=== PATIENT | male | born 2000 | race Caucasian/White ===

== ENCOUNTER 2021-03-27 17:12 | Emergency (ER) | payer OTHER, SELFPAY ==
[2021-03-27 17:13] VITALS: BP 120/87; PULSE 67; RESP 16; TEMP 36.3; O2SAT 98; BMI 20.9
--- NOTE | 2021-03-27 17:35 | EDS_ITS ---
HPI History of Present Illness HPI Narrative: Patient presents with injury to his right thumb that occurred today. Patient states he got it caught in a press. Patient states his pain is sharp, aching, and throbbing. Patient admits to some numbness and tingling in his right arm. Patient states nothing makes the pain worse and nothing makes it better. Patient states his last tetanus was up-to-date. Patient is right- hand dominant. Chief Complaint: Upper Extremity Injury Informant: patient Occured/Mechanism Mechanism/Context: Yes crush and Yes direct blow Onset/Context/Timing Onset: Today Context: Sudden Onset Timing: Continuous Quality of Pain: Sharp, Aching and Throbbing Location: Right thumb Worsened by: Palpation Relieved by: Nothing Associated Symptoms Associated Symptoms: Positive for Parasthesia; Negative for Weakness and Loss of Funtion Narrative Tetanus Immunization: <5 years [facility] Medical History History of skull fracture Home Medications NK 03/27/21 [History Last Taken Unknown] Allergy/AdvReac Type Severity Reaction Status Date / Time No Known Allergies Allergy Verified 03/27/21 17:15 Social History Smoking Status: Current every day smoker tobacco type: smokeless tobacco ROS ROS ED Constitutional Constitutional ED: Denies chills or fever(s) Eyes Eyes: Denies blurry vision or change in vision ENT ENT ED: Denies rhinorrhea or sore throat Cardiovascular Cardiovascular: Denies chest pain or palpitations Respiratory/Chest Respiratory/Chest: Denies cough or dyspnea Gastrointestinal Gastrointestinal: Denies nausea or vomiting Genitourinary Genitourinary ED: Denies dysuria or hematuria Musculoskeletal Musculoskeletal: Denies back pain or neck pain Integumentary Denies abscess or rash Neurologic Neurologic: Denies headache(s) or weakness Allergic/Immunologic Allergic/Immunologic ED: Denies mouth swelling or urticaria EXAM Physical Exam Const Vital Signs: 03/27/21 17:13 Temperature 97.4 F L Temperature Source Temporal Pulse Rate 67 Respiratory Rate 16 Blood Pressure 120/87 H Blood Pressure Mean 98 Pulse Ox 98 Oxygen Delivery Method Room Air Positive well nourished and well developed General Appearance ED: well developed and NAD HEENT Reports moist mucous membranes Neck full ROM and supple Extremity Extremity Narrative: There is a crush injury to the right thumb. There is a large stellate laceration of the right thumb. There is bone exposed. There is loss of tissue. There is no active bleeding noted. Neuro oriented x3, CN's II-XII intact bilaterally, moves all extremities, no focal motor deficits and no sensory deficits noted Sensorium / Orientation: alert Psych mental status grossly normal MDM MDM MDM Narrative Medical decision making narrative: Patient was given Dilaudid and Zofran here. Patient was given Ancef. Patient states his tetanus was up-to-date. X-rays of the right hand were obtained. There are 3 views. On my interpretation, there are comminuted fractures of the base of the distal phalanx of the right thumb and distal aspect of the proximal phalanx of the right thumb. Since this is the thumb on his dominant hand, I recommended transfer to a facility that has hand surgery capabilities. Case was discussed with Dr. Hogan in the emergency department at [facility]. She recommended contacting Dr. Les vivas. I discussed the case with her. She agrees to have the patient transferred to [facility]. Patient will be transferred to the emergency department there and seen by the orthopedic and hand residents. Patient understood and was agreeable with the plan. All questions were answered. Discharge Plan Triage Chief Complaint: Upper Extremity Injury ED Provider: Mahad Nolasco Dx/Rx/DC Orders Clinical Impression: Open fracture of right thumb Prescriptions: No Action NK RF: 0 Primary Care Provider: Natalie Garza Referrals: Natalie Garza DO [Primary Care Provider] - Disposition Disposition: Acute Care Hospital Discharge Location: [facility]
[2021-03-27] MEDS: HYDROmorphone 1 MG/ML Syringe IV ×2 (17:42→20:02)
[2021-03-27] MEDS: Ondansetron 4 MG/2 ML Vial IV (17:42)
--- NOTE | 2021-03-27 18:00 | RAD_ITS ---
STUDY: X-RAY - RIGHT HAND REASON FOR EXAM: Male, 20 years old. PARTIAL AMPUTATION OF RIGHT THUMB AFTER GETTING STUCK IN A PRESS AT WORK TECHNIQUE: 3 view(s) of the hand. COMPARISON: None. FINDINGS: A horizontal fracture is present through the head of the proximal talus of the thumb which is displaced laterally from a site of origin by 7.4 mm. A comminuted fracture is also present at the base of the distal phalanx of the thumb with high-grade laceration of the overlying soft tissues and partial amputation the remaining aspects of the distal phalanx of the thumb are intact. Normal radiocarpal articulation. Normal distal radioulnar joint. Normal visualized carpal bones. Normal carpal articulations Normal carpometacarpal articulation of the thumb. Normal second through fifth carpometacarpal joints. Normal metacarpi. Normal metacarpophalangeal joint of the thumb. Normal interphalangeal joint of the thumb. Normal proximal and distal phalanges of the thumb. Normal metacarpophalangeal joints of the second through fifth fingers. Normal proximal and distal interphalangeal joints of the second through fifth fingers. RAD/Hand Min 3 Views IMPRESSION: 1. A horizontal fracture is present through the head of the proximal talus of the thumb which is displaced laterally from a site of origin by 7.4 mm. A comminuted fracture is also present at the base of the distal phalanx of the thumb with high-grade laceration of the overlying soft tissues and partial amputation the remaining aspects of the distal phalanx of the thumb are intact Electronically Signed: David Caldeorn MD at 19:00 EST ,
[2021-03-27 18:12] VITALS: BP 128/93; PULSE 52; RESP 14; O2SAT 100
[2021-03-27] MEDS: Cefazolin 1 GM/50 ML BAG IV (18:16)
[2021-03-27 19:12] VITALS: BP 122/79; RESP 16; O2SAT 99
--- NOTE | 2021-03-27 19:59 | ED.RN ---
CALLED [facility] TO GET A TRAUMA TRANSFER, THE ETA WAS TWO HOURS. I TOLD THEM TO OUTSOURCE THIS DUE TO BEING A TRAUMA TRANSFER AND THAT TWO HOURS WAS NOT ACCEPTABLE. THEY SAID THEY HAVE BEEN TRYING TO GET [facility] FOR TRANSFERS AND NOBODY ELSE WILL TAKE OUR TRANSFERS.
[2021-03-27 20:00] VITALS: BP 122/79; PULSE 56; RESP 16; O2SAT 100
[2021-03-27 20:41] VITALS: BP 119/73; PULSE 56; RESP 16; TEMP 36.3; O2SAT 100
== END 2021-03-27 20:56 | disposition short-term general hospital (02) ==
PROVIDERS: Emergency Provider Emergency Medicine; PCP Family Medicine; Visit Provider Emergency Medicine
DX: S62.521B Displaced fracture of distal phalanx of right thumb, initial encounter for open fracture (principal); F17.220 Nicotine dependence, chewing tobacco, uncomplicated; W31.9XXA Contact with unspecified machinery, initial encounter
CPT/HCPCS: 73130; 99285; J2405

== ENCOUNTER 2021-04-02 17:24 | Emergency (ER) | payer OTHER, SELFPAY ==
[2021-04-02 17:24] VITALS: BP 128/93; PULSE 83; RESP 14; TEMP 36.2; O2SAT 98; BMI 18.1
--- NOTE | 2021-04-02 18:13 | EDS_ITS ---
HPI History of Present Illness Chief Complaint: Wound Check Informant: patient and parent Onset/Context/Timing Onset: Days (2-3) Context: Gradual Onset Timing: Continuous Quality of Pain: Aching Location: Right thumb Current Severity: Moderate Maximum Severity: Moderate Worsened by: Palpation Relieved by: Leaving alone Associated Symptoms Associated Symptoms: Positive for Parasthesia Narrative Narrative: Patient had a right thumb crush injury, he had surgery on it about 6 days ago in [facility] Dr. Dara Love. He had antibiotics while he was at the hospital, with not discharged on any. They were advised not to do anything with the dressing until seen as follow-up in the office which is scheduled for tomorrow. Over the last couple days, there has been seeping of blood, and it has started to become foul-smelling. They called the office and were advised to go ahead and change the dressing, and if they had trouble to go to the nearest ER which is what they did. He denies any fevers, chills, systemic symptoms. His only knowledge of the surgery was they did a partial amputation and repair. [facility] Medical History History of skull fracture Home Medications cefadroxil 500 mg PO Q12H #20 cap 04/02/21 [Rx Last Taken Unknown] Allergy/AdvReac Type Severity Reaction Status Date / Time adhesive tape Allergy Rash Verified 04/02/21 17:28 Social History Smoking Status: Current every day smoker tobacco type: smokeless tobacco ROS ROS ED Constitutional Constitutional ED: Denies chills or fever(s) Musculoskeletal Musculoskeletal: Reports extremity pain; Denies neck pain Integumentary Reports as per HPI and wounds; Denies Abrasions or rash Neurologic Neurologic: Reports paresthesias RUE (Thumb since surgery); Denies weakness EXAM Physical Exam Const Vital Signs: 04/02/21 17:24 Temperature 97.2 F L Temperature Source Temporal Pulse Rate 83 Respiratory Rate 14 Blood Pressure 128/93 H Blood Pressure Mean 104 Pulse Ox 98 Oxygen Delivery Method Room Air Positive well nourished and well developed General Appearance ED: well developed and NAD Neck full ROM and supple Back/Spine normal ROM and normal to inspection Extremity Extremity Narrative: Patient has a bulky dressing on the right thumb along with a fiberglass splint that is custom built within the dressing. After gently removing this layer by layer including many layers of gauze that were dried to the thumb with dried blood, there were the layers of green, it is somewhat foul-smelling, I was able to reveal perfused-appearing tissue with 4 K wires emanating from different parts of the distal aspect of what is left of the thumb, there is some occasional mild oozing of blood no pulsatile or life- threatening bleeding, there is a hardened piece of gauze against the tip of the finger keeping me from visualizing the skin here, which is where there are 2 K wires. It is possible this was soaked in Dakin's solution, however difficult to tell. Neuro oriented x3, no focal motor deficits and no sensory deficits noted Sensorium / Orientation: alert Psych mental status grossly normal and thought process normal Skin no wounds Rashes: no rashes MDM MDM MDM Narrative Medical decision making narrative: I discussed with the hand surgeon on-call for the patient's surgeon at [facility], his recommendation was to redress the patient's wound and place him on prophylactic antibiotics and they will see you tomorrow at the regularly scheduled appointment which I think is reasonable. I think in reality this is probably not acutely infected, and that the foul smell is coming from whatever solution the gauze was soaked and against the wound. There is a small piece of gauze that is black and thickened and difficult to remove, it is against the K wires at the tip of the thumb, and the surgeon recommended leaving that alone so as not to disturb the K wires, also totally in agreement with that. I redressed him myself, with nursing assistance, winding a piece of iodoform-Vaseline gauze in between the K wires, and then placing alcohol pads on top of the K wires so as not to have them hooked onto and catch the gauze dressing, then a bulky gauze dressing was placed on top of that. He is being seen in 12 hours or so, so I do not think he needs splinted on top of this and they are in agreement with all of that. Prescribe Duricef and given a dose here. Discharge Plan Triage Chief Complaint: Wound Check ED Provider: Jameson Killian Dx/Rx/DC Orders Clinical Impression: Encounter for post surgical wound check, Encounter for change or removal of surgical wound dressing Instructions: Wound Care Dc Prescriptions: New cefadroxil 500 mg capsule 500 mg PO Q12H Qty: 20 RF: 0 Primary Care Provider: Natalie Garza Referrals: Dara Castellano [Other] - 1 Day (as scheduled tomorrow) Natalie Garza DO [Primary Care Provider] - Disposition Disposition: Home, Self Care
[2021-04-02 19:27] VITALS: BP 130/70; PULSE 86; RESP 16
[2021-04-02] MEDS: Cefadroxil 500 MG CAPSULE PO (19:47)
== END 2021-04-02 19:48 | disposition home or self-care (01) ==
PROVIDERS: Emergency Provider Emergency Medicine; PCP Family Medicine; Visit Provider Emergency Medicine
DX: Z48.01 Encounter for change or removal of surgical wound dressing (principal); F17.220 Nicotine dependence, chewing tobacco, uncomplicated
CPT/HCPCS: 99282

== ENCOUNTER 2024-12-04 17:53 | Emergency (ER) | payer SELFPAY ==
[2024-12-04 17:54] VITALS: BP 137/82; PULSE 64; RESP 20; TEMP 36.4; O2SAT 99; BMI 19.9
--- NOTE | 2024-12-04 18:20 | RAD_ITS ---
PROCEDURE: RIGHT HAND MIN 3 VIEWS 12/04/2024 REASON FOR EXAM: INJURY/PAIN TECHNIQUE: Procedure Code: LEFTY Modality: DX Procedure: HAND MIN 3 VIEWS Laterality: Right COMPARISON: None. FINDINGS: No acute fracture or dislocation. Alignment is anatomic. Preserved joint spaces. No aggressive osseous lesion. No marked soft tissue swelling or radiopaque foreign body. RAD/Hand Min 3 Views IMPRESSION: No acute fracture or dislocation. Reading Location: [id number]
--- OUTSIDE RECORDS SUMMARY | 2024-12-04 19:08 | XMS RPT_ITS | CCD ---
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 with delayed healing, subsequent encounter [S62.511G] Order(s):XR DIGIT GENERAL 3V FRONTAL/LAT/OBL RIGHT [[id number]] Order #: [id number] Problem List As Of Date (more content not included)... [facility] CNTHERAPYon 08-07-2021 CNTHERAPY OT/PT/Speech Visit (AKOTS) HARVEY ECHEVARRIA ([id number]) 2000 [facility] Date Time Provider Department 08/07/21 11:00 AM PARVIN MCDANIELS Date Time Provider Department Center 08/07/2021 11:00 AM [id number] MCDANIELS [facility] Reason for Visit: Occupational Therapy [504] OT Discharge [750] Primary Visit Diagnosis:Crushing injury of right thumb, subsequent encounter [S67.01XD] Allergies As of Date: 08/07/2021 Noted Allergy Reaction ADHESIVE TAPE (ROSINS) 04/02/2021 2 - Rash CLARITIN (LORATADINE) 04/24/2021 2 - Rash Date Reviewed: 08/07/2021 Reviewed by: Tiesha Damian LPN - Fully Assessed [facility] CNTHERAPYon 07-24-2021 CNTHERAPY OT/PT/Speech Visit (AKOT[facility]) HARVEY ECHEVARRIA ([id number]) 2000 [facility] Date Time Provider Department 07/24/21 10:45 AM MARIA ALEJANDRA QUISPE Date Time Provider Department Center 07/24/2021 10:45 AM [id number] ALEJANDRA QUISPE [facility] Reason for Visit: OT Progress Note [1595] Primary Visit Diagnosis:Crushing injury of right thumb, subsequent encounter [S67.01XD] Allergies As of Date: 07/24/2021 Noted Allergy Reaction ADHESIVE TAPE (ROSINS) 04/02/2021 2 - Rash CLARITIN (LORATADINE) 04/24/2021 2 - Rash Date Reviewed: 07/14/2021 Reviewed by: Dara Hilario MD - Fully Assessed [facility] CNCOon 07-14-2021 CNCO Letter Text [facility] CNOVon 07-14-2021 CNOV Office Visit (AGPOB3 ) HARVEY ECHEVARRIA ([id number]) 2000 [facility] Date Time Provider Department 07/14/21 10:45 AM DARA HILARIO AGPOB3 During your visit today, we recorded the following information about you: Respiration Weight Height 16/minute 56.2 kg 1.778 m Dara Hilario MD 07/14/2021 10:39 AM Signed Dara Hilario MD Hand AND Upper Extremity Surgery [address], [place] [address], [place] [address] [address], [place] [address], [address], [place] [address] POST-OP VISIT SERVICE DATE: 07/14/2021 SURGICAL PROCEDURE: 11 weeks 4 days status post- 1)?Debridement and irrigation of skin, subcutaneous tissue,?bone of the right thumb?for infection 2) Removal of hardware, right thumb distal phalanx 3) Removal of hardware, right thumb proximal phalanx 4) Revision amputation of the right thumb at the interphalangeal joint SURGERY DATE: 04/24/21 Harvey Echevarria is a 20 year old male who presents for evaluation following the above procedure. Patient is doing well postoperatively and advancing through postop protocol. Patient denies any fevers or chills. Patient denies any new drainage from the incision. Improving numbness/tingling and sensitivity to the distal tip. Pain is controlled with [id number] pain medication as needed. Patient is working on range of motion with a home exercise program and occupational therapy. He has started working on [employer]. I am keeping him limited with strengthening thus far due to incomplete fracture healing of the proximal phalanx at the last visit. Work status: Modified duty No past medical history on file. PAST SURGICAL HISTORY Procedure Laterality Date - PAST SURGICAL HISTORY OF right thumb amputaion No family history on file. Social History Tobacco Use - Smoking status: Never Smoker - Smokeless tobacco: Former User Types: Chew Substance Use Topics - Alcohol use: Not on file - Drug use: Not on file MEDICATIONS: No current outpatient medications on file. No current facility-administered medications for this visit. ALLERGIES: ALLERGIES Allergen Reactions - Adhesive Tape (Tiffanie* Rash - Claritin [Loratadin* Rash PHYSICAL EXAM: VITAL SIGNS: There were no vitals taken for this visit. GENERAL: The patient is well developed and well nourished, awake, alert, and oriented with appropriate mood and affect. Normal gait and station. SKIN: The skin surrounding the incision is non-erythematous. No active drainage. No fluctuance or fluid collection. Incision maturing. There is a scabbing area that is being treated by silicone successfully thus far INSPECTION/PALPATION: There is improved swelling around the surgical site, within normal post-op limits, and no palpable joint effusion. TENDERNESS: There is decreased tenderness to palpation over the distal aspect of the proximal phalanx ROM: There is good MP flexion and extension LIGAMENTS: There is no gross ligamentous laxity. MUSCLE: Chalk Extruding Machine Operator strength is decreased due to weakness NEURO: Sensation is grossly intact to light touch in the median, ulnar, and radial distributions. VASCULAR: Strong radial pulse. Excellent capillary refill to all digits. POST OPERATIVE IMAGIN views (PA, oblique, lateral) of the right thumb were obtained, reviewed and interpreted and demonstrate no interval fracture displacement. Increased callus formation at the previously viewed fracture site. Overall alignment of the proximal phalanx is near anatomic. Assessment and Plan: (S67.01XD) Crush injury to thumb, right, subsequent encounter (primary encounter diagnosis) (S68.126D) Open displaced fracture of proximal phalanx of right thumb with routine healing, subsequent encounter I reviewed the X-rays with the patient. At this point I think there is increased callus formation at the fracture site. It is still incompletely healed ulnarly with some sclerosis at the site but seems to be healed enough to begin strengthening. I would like him to start strengthening and pinch with OT in order to regain closer to baseline function and be able to return to work full duty. Plan will be returned to work without restriction after the next visit if therapy is successfully completed and progress is made. Continue scar desensitization. We discussed cold intolerance again. Patient understands the time needed for this to improve. All patient's questions were answered to their satisfaction. Patient/family acknowledges understanding of instructions: Yes Patient advised to call with questions or concerns Follow up in 3 weeks. X-Rays Needed Dara Hilario MD Referring Provider: SELF [200] Allergies As of Date: 07/14/2021 Noted Allergy Reaction ADHESIVE TAPE (ROSINS) 04/02/2021 2 - Rash CLARITIN (LORATADINE) 04/24/2021 2 - Rash Date Reviewed: 07/14/2021 Reviewed by: Darci (more content not included)... [facility] CNTHERAPYon 07-03-2021 CNTHERAPY OT/PT/Speech Visit (AKOTS) HARVEY ECHEVARRIA ([id number]) 2000 [facility] Date Time Provider Department 07/03/21 10:15 AM YOU RAY Date Time Provider Department Center 07/03/2021 10:15 AM [id number] RAY [facility] Reason for Visit: Occupational Therapy [504] Primary Visit Diagnosis:Crushing injury of right thumb, subsequent encounter [S67.01XD] Allergies As of Date: 07/03/2021 Noted Allergy Reaction ADHESIVE TAPE (ROSINS) 04/02/2021 2 - Rash CLARITIN (LORATADINE) 04/24/2021 2 - Rash Date Reviewed: 06/14/2021 Reviewed by: Dara Hilario MD - Fully Assessed [facility] CNTHERAPYon 06-26-2021 CNTHERAPY OT/PT/Speech Visit (AKOT[facility]) HARVEY ECHEVARRIA ([id number]) 2000 [facility] Date Time Provider Department 06/26/21 12:30 PM YOU RAY Date Time Provider Department Center 06/26/2021 12:30 PM [id number] CORTES [facility] Reason for Visit: Occupational Therapy [504] Primary Visit Diagnosis:Crushing injury of right thumb, subsequent encounter [S67.01XD] Allergies As of Date: 06/26/2021 Noted Allergy Reaction ADHESIVE TAPE (ROSINS) 04/02/2021 2 - Rash CLARITIN (LORATADINE) 04/24/2021 2 - Rash Date Reviewed: 06/14/2021 Reviewed by: Dara Hilario MD - Fully Assessed [facility] CNTHERAPYon 06-19-2021 CNTHERAPY OT/PT/Speech Visit ([facility]) HARVEY ECHEVARRIA ([id number]) 2000 [facility] Date Time Provider Department 06/19/21 9:30 AM YOU RAY Date Time Provider Department Center 06/19/2021 9:30 AM [id number] CORTES [facility] Reason for Visit: OT Progress Note [1595] Primary Visit Diagnosis:Crushing injury of right thumb, subsequent encounter [S67.01XD] Allergies As of Date: 06/19/2021 Noted Allergy Reaction ADHESIVE TAPE (ROSINS) 04/02/2021 2 - Rash CLARITIN (LORATADINE) 04/24/2021 2 - Rash Date Reviewed: 06/14/2021 Reviewed by: Dara Hilario MD - Fully Assessed [facility] CNOVon 06-09-2021 CNOV Office Visit (AGPOB3 ) HARVEY ECHEVARRIA ([id number]) 2000 [facility] Date Time Provider Department 06/09/21 10:30 AM DARA HILARIO AGPOB3 During your visit today, we recorded the following information about you: Respiration Weight Height 16/minute 56.2 kg 1.727 m Dara Hilario MD 07/09/2021 7:31 PM Signed Dara Hilario MD Hand AND Upper Extremity Surgery [address] [id number] [address], [facility] [address] [address] [facility] [address] [facility] [address], [facility] [address] [address], [place] [address] POST-OP VISIT SERVICE DATE: 06/09/2021 SURGICAL PROCEDURE: 6 weeks 4 days status post- 1) Debridement and irrigation of skin, subcutaneous tissue, bone of the right thumb for infection 2) Removal of hardware, right thumb distal phalanx 3) Removal of hardware, right thumb proximal phalanx 4) Revision amputation of the right thumb at the interphalangeal joint SURGERY DATE: 04/24/21 Harvey Echevarria is a 20 year old male who presents for evaluation following the above procedure. Patient is doing well postoperatively and advancing through postop protocol. Patient denies any fevers or chills. Patient denies any new drainage from the incision. Has stable distal thumb stump numbness/tingling. Pain is controlled with OTC pain medication as needed. Patient is working on range of motion with a home exercise program and occupational therapy. Work status: Has been back on modified duty Incision has been healing well. No past medical history on file. PAST SURGICAL HISTORY Procedure Laterality Date - PAST SURGICAL HISTORY OF right thumb amputaion No family history on file. Social History Tobacco Use - Smoking status: Never Smoker - Smokeless tobacco: Former User Types: Chew Substance Use Topics - Alcohol use: Not on file - Drug use: Not on file MEDICATIONS: No current outpatient medications on file. No current facility-administered medications for this visit. ALLERGIES: ALLERGIES Allergen Reactions - Adhesive Tape (Tiffanie* Rash - Claritin [Loratadin* Rash PHYSICAL EXAM: VITAL SIGNS: Resp 16 Ht 5' 8 (1.73m) Wt 124 lb (56.2kg) BMI 18.86 kg/(m2). GENERAL: The patient is well developed and well nourished, awake, alert, and oriented with appropriate mood and affect. Normal gait and station. SKIN: The skin surrounding the incision is non-erythematous. No active drainage. No fluctuance or fluid collection. Thumb is healing well INSPECTION/PALPATION: There is diffuse, improving swelling around the surgical site, within normal post-op limits, and no palpable joint effusion. TENDERNESS: There is tenderness to palpation over the distal tip worst ulnarly ROM: There is good MP flexion which is symmetric LIGAMENTS: There is no gross ligamentous laxity. MUSCLE: Chalk Extruding Machine Operator strength is not tested NEURO: Sensation is grossly intact to light touch in the median, ulnar, and radial distributions except at tip of thumb VASCULAR: Strong radial pulse. Excellent capillary refill to all digits. POST OPERATIVE IMAGIN views (PA, oblique, lateral) of the right thumb were obtained, reviewed and interpreted and demonstrate fracture at the distal aspect of the proximal phalanx with some interval callus. Assessment and Plan: (M96.59XD) Crush injury to thumb, right, subsequent encounter (primary encounter diagnosis) (E15.179D) Open displaced fracture of proximal phalanx of right thumb with routine healing, subsequent encounter I reviewed the X-rays with the patient. I think his area of maximal pain correlates with the lingering fracture line. We will continue to monitor for fracture healing. He will continue to work on range of motion with OT. I would like to wait on strengthening until we see more healing at the fracture site. Continue to work on daily wound care. All patient's questions were answered to their satisfaction. Patient/family acknowledges understanding of instructions: Yes Patient advised to call with questions or concerns Follow up in 2 - 4 weeks. X-Rays Needed Dara Hilario MD Referring Provider: [facility] [[id number]] Allergies As of Date: 06/09/2021 Noted Allergy Reaction ADHESIVE TAPE (ROSINS) 04/02/2021 2 - Rash CLARITIN (LORATADINE) 04/24/2021 2 - Rash Date Reviewed: 06/09/2021 Reviewed by: Lata Matt - Fully Assessed Reason for Visit: Follow Up [171] Primary Visit Diagnosis:Crush injury to thumb, right, subsequent encounter [S67.01XD] Other Visit Diagnosis:Open displaced fracture of proximal phalanx of right thumb with routine healing, subsequent encounter [S62.511D] Order(s):XR DIGIT GENERAL 3V FRONTAL/LAT/OBL RIGHT [[id number]] Order #: [id number] Problem List As Of Date 06/09/2021 Noted Resolved Thumb injury [S69.90XA] 03/28/2021 Nicotine use disorder, F17.2 [F17.200] 03/28/2021 Open displaced fracture of (more content not included)... Normal [facility] CNTHERAPYon 06-05-2021 CNTHERAPY OT/PT/Speech Visit (AKOT[facility]) HARVEY ECHEVARRIA ([id number]) 2000 M [facility] Date Time Provider Department 06/05/21 9:30 AM YOU RAY Date Time Provider Department Center 06/05/2021 9:30 AM [id number] RAY [facility] Reason for Visit: Occupational Therapy [504] Primary Visit Diagnosis:Crushing injury of right thumb, subsequent encounter [S67.01XD] Allergies As of Date: 06/05/2021 Noted Allergy Reaction ADHESIVE TAPE (ROSINS) 04/02/2021 2 - Rash CLARITIN (LORATADINE) 04/24/2021 2 - Rash Date Reviewed: 05/18/2021 Reviewed by: Dara Hilario MD - Fully Assessed [facility] CNTHERAPYon 05-26-2021 CNTHERAPY OT/PT/Speech Visit ([facility]) HARVEY ECHEVARRIA ([id number]) 2000 [facility] Date Time Provider Department 05/26/21 11:00 AM YOU RAY Date Time Provider Department Center 05/26/2021 11:00 AM [id number] RAY [facility] Reason for Visit: Occupational Therapy [504] Primary Visit Diagnosis:Crushing injury of right thumb, subsequent encounter [S67.01XD] Allergies As of Date: 05/26/2021 Noted Allergy Reaction ADHESIVE TAPE (ROSINS) 04/02/2021 2 - Rash CLARITIN (LORATADINE) 04/24/2021 2 - Rash Date Reviewed: 05/18/2021 Reviewed by: Dara Hilario MD - Fully Assessed Prescriptions as of 05/26/2021 - sulfamethoxazole-trime thoprim (BACTRIM DS) 800-160 mg per tablet Take 1 tablet by mouth twice daily for 10 days. Normal [facility] Emergency Department Summary on 04-02-2021 Emergency Department Summary [facility] Medical Records Department [address] [place] [address] Emergency Department Summary 04/02/21 MR#: [id number] Acct: [id number] Name: HARVEY ECHEVARRIA Rep #: [id number] : 2000 20 From: Jameson Killian MD PCP: Dr. Natalie Live, DO Status:REG ER Location: ED HPI History of Present Illness Chief Complaint: Wound Check Informant: patient and parent Onset/Context/Timing Onset: Days (2-3) Context: Gradual Onset Timing: Continuous Quality of Pain: Aching Location: Right thumb Current Severity: Moderate Maximum Severity: Moderate Worsened by: Palpation Relieved by: Leaving alone Associated Symptoms Associated Symptoms: Positive for Parasthesia Narrative Narrative: Patient had a right thumb crush injury, he had surgery on it about 6 days ago in [facility] Dr. Dara Love. He had antibiotics while he was at the hospital, with not discharged on any. They were advised not to do anything with the dressing until seen as follow-up in the office which is scheduled for tomorrow. Over the last couple days, there has been seeping of blood, and it has started to become foul-smelling. They called the office and were advised to go ahead and change the dressing, and if they had trouble to go to the nearest ER which is what they did. He denies any fevers, chills, systemic symptoms. His only knowledge of the surgery was they did a partial amputation and repair. [facility] Medical History History of skull fracture Home Medications cefadroxil 500 mg PO Q12H #20 cap 04/02/21 [Rx Last Taken Unknown] Allergy/AdvReac Type Severity Reaction Status Date / Time adhesive tape Allergy Rash Verified 04/02/21 17:28 Social History Smoking Status: Current every day smoker tobacco type: smokeless tobacco ROS ROS ED Constitutional Constitutional ED: Denies chills or fever(s) Musculoskeletal Musculoskeletal: Reports extremity pain; Denies neck pain Integumentary Reports as per HPI and wounds; Denies Abrasions or rash Neurologic Neurologic: Reports paresthesias RUE (Thumb since surgery); Denies weakness EXAM Physical Exam Const Vital Signs: 04/02/21 17:24 Temperature 97.2 F L Temperature Source Temporal Pulse Rate 83 Respiratory Rate 14 Blood Pressure 128/93 H Blood Pressure Mean 104 Pulse Ox 98 Oxygen Delivery Method Room Air Positive well nourished and well developed General Appearance ED: well developed and NAD Neck full ROM and supple Back/Spine normal ROM and normal to inspection Extremity Extremity Narrative: Patient has a bulky dressing on the right thumb along with a fiberglass splint that is custom built within the dressing. After gently removing this layer by layer including many layers of gauze that were dried to the thumb with dried blood, there were the layers of green, it is somewhat foul-smelling, I was able to reveal perfused-appearing tissue with 4 K wires emanating from different parts of the distal aspect of what is left of the thumb, there is some occasional mild oozing of blood no pulsatile or life-threatening bleeding, there is a hardened piece of gauze against the tip of the finger keeping me from visualizing the skin here, which is where there are 2 K wires. It is possible this was soaked in Dakin's solution, however difficult to tell. Neuro oriented x3, no focal motor deficits and no sensory deficits noted Sensorium / Orientation: alert Psych mental status grossly normal and thought process normal Skin no wounds Rashes: no rashes MDM MDM MDM Narrative Medical decision making narrative: I discussed with the hand surgeon on-call for the patient's surgeon at [facility], his recommendation was to redress the patient's wound and place him on prophylactic antibiotics and they will see you tomorrow at the regularly scheduled appointment which I think is reasonable. I think in reality this is probably not acutely infected, and that the foul smell is coming from whatever solution the gauze was soaked and against the wound. There is a small piece of gauze that is black and thickened and difficult to remove, it is against the K wires at the tip of the thumb, and the surgeon recommended leaving that alone so as not to disturb the K wires, also totally in agreement with that. I redressed him myself, with nursing assistance, winding a piece of iodoform-Vaseline gauze in between the K wires, and then placing alcohol pads on top of the K wires so as not to have them hooked onto and catch the gauze dressing, then a bulky gauze dressing was placed on top of that. He is being seen in 12 hours or so, so I do not think he needs splinted on top of this and they are in agreement with all of (more content not included)... Normal [facility] Emergency Department Summary on 03-27-2021 Emergency Department Summary [facility] Medical Records Department [address] [place] [address] Emergency Department Summary 03/27/21 MR#: [id number] Acct: [id number] Name: HARVEY ECHEVARRIA Rep #: [id number] : 2000 20 From: Mahad Nolasco DO PCP: Dr. Natalie Live DO Status:DEP ER Location: ED HPI History of Present Illness HPI Narrative: Patient presents with injury to his right thumb that occurred today. Patient states he got it caught in a press. Patient states his pain is sharp, aching, and throbbing. Patient admits to some numbness and tingling in his right arm. Patient states nothing makes the pain worse and nothing makes it better. Patient states his last tetanus was up-to-date. Patient is right-hand dominant. Chief Complaint: Upper Extremity Injury Informant: patient Occured/Mechanism Mechanism/Context: Yes crush and Yes direct blow Onset/Context/Timing Onset: Today Context: Sudden Onset Timing: Continuous Quality of Pain: Sharp, Aching and Throbbing Location: Right thumb Worsened by: Palpation Relieved by: Nothing Associated Symptoms Associated Symptoms: Positive for Parasthesia; Negative for Weakness and Loss of Funtion Narrative Tetanus Immunization: <5 years PFSH [facility] Medical History History of skull fracture Home Medications NK 03/27/21 [History Last Taken Unknown] Allergy/AdvReac Type Severity Reaction Status Date / Time No Known Allergies Allergy Verified 03/27/21 17:15 Social History Smoking Status: Current every day smoker tobacco type: smokeless tobacco ROS ROS ED Constitutional Constitutional ED: Denies chills or fever(s) Eyes Eyes: Denies blurry vision or change in vision ENT ENT ED: Denies rhinorrhea or sore throat Cardiovascular Cardiovascular: Denies chest pain or palpitations Respiratory/Chest Respiratory/Chest: Denies cough or dyspnea Gastrointestinal Gastrointestinal: Denies nausea or vomiting Genitourinary Genitourinary ED: Denies dysuria or hematuria Musculoskeletal Musculoskeletal: Denies back pain or neck pain Integumentary Denies abscess or rash Neurologic Neurologic: Denies headache(s) or weakness Allergic/Immunologic Allergic/Immunologic ED: Denies mouth swelling or urticaria EXAM Physical Exam Const Vital Signs: 03/27/21 17:13 Temperature 97.4 F L Temperature Source Temporal Pulse Rate 67 Respiratory Rate 16 Blood Pressure 120/87 H Blood Pressure Mean 98 Pulse Ox 98 Oxygen Delivery Method Room Air Positive well nourished and well developed General Appearance ED: well developed and NAD HEENT Reports moist mucous membranes Neck full ROM and supple Extremity Extremity Narrative: There is a crush injury to the right thumb. There is a large stellate laceration of the right thumb. There is bone exposed. There is loss of tissue. There is no active bleeding noted. Neuro oriented x3, CN's II-XII intact bilaterally, moves all extremities, no focal motor deficits and no sensory deficits noted Sensorium / Orientation: alert Psych mental status grossly normal MDM MDM MDM Narrative Medical decision making narrative: Patient was given Dilaudid and Zofran here. Patient was given Ancef. Patient states his tetanus was up-to-date. X-rays of the right hand were obtained. There are 3 views. On my interpretation, there are comminuted fractures of the base of the distal phalanx of the right thumb and distal aspect of the proximal phalanx of the right thumb. Since this is the thumb on his dominant hand, I recommended transfer to a facility that has hand surgery capabilities. Case was discussed with Dr. Hogan in the emergency department at [facility]. She recommended contacting Dr. Hilario. I discussed the case with her. She agrees to have the patient transferred to [facility]. Patient will be transferred to the emergency department there and seen by the orthopedic and hand residents. Patient understood and was agreeable with the plan. All questions were answered. Discharge Plan Triage Chief Complaint: Upper Extremity Injury ED Provider: Mahad Nolasco Dx/Rx/DC Orders Clinical Impression: Open fracture of right thumb Prescriptions: No Action NK RF: 0 Primary Care Provider: Natalie Live Referrals: Natalie Live DO [Primary Care Provider] - Disposition Disposition: Acute Care Hospital Discharge Location: [facility] What to do if you have Problems For any increased pain, shortness of breath, bleeding, nausea or vomiting, chest pain, or any unexpected problems, contact your Primary Care Provider. Call [facility] ([phone]) or report to the (more content not included)... Normal [facility] Hand Min 3 Viewson 2 Hand Min 3 Views [facility] Imaging Services [address] [place] [address] Hand Min 3 Views MR#: [id number] Acct: [id number] Name: HARVEY ECHEVARRIA Rep #: [id number] : 2000 M 20 From: David aragon MD PCP: Dr. Natalie Live DO Status: REG ER Study: Hand Min 3 Views Date of Exam: 03/27/21 Exam# [id number] Ordering Dr: Mahad Nolasco DO STUDY: X-RAY - RIGHT HAND REASON FOR EXAM: Male, 20 years old. PARTIAL AMPUTATION OF RIGHT THUMB AFTER GETTING STUCK IN A PRESS AT WORK TECHNIQUE: 3 view(s) of the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 updated goals for this plan of care as noted below. Goals for Episode of Care created on 04/03/21 through 07/02/21 UPDATED 06/19/21, 07/24/21. Patient will report a good understanding of diagnosis and OT recommendations for progression of program. Achieved 05/18/2021 and ongoing, Ongoing 07/24/21. Patient will demonstrate independence with ongoing home recommendations/exercise program throughout therapy plan of care. Achieved 05/18/2021 and ongoing. ONGOING 06/19/21, 07/24/21. Patient will improve function in Right wrist , hand and finger in order to be able to perform basic self-care tasks, home management tasks and leisure / recreation skills. Not Addressed 05/18/2021 as patient is not yet allowed to use hand per healing protocol. ONGOING and PROGRESSING 06/18/21, 07/24/21. Patient will report a decrease in pain in Right hand and finger to 0/10 with basic self-care tasks, home management tasks and leisure / recreation skills. Achieved 05/18/2021 and ongoing Patient will increase AROM of Right wrist , hand and finger to WFL and opposition to base of small finger and digits to DPC in order to be able to improve function for basic self-care tasks, home management tasks and leisure / recreation skills. Achieved 05/18/2021 and ongoing. ONGOING and PROGRESSING 06/18/21, 07/24/21. Patient will independently demonstrate correct application of CUSTOM orthosis and verbalize understanding of proper wear/care. Achieved 05/18/2021 and ongoing. ONGOING and PROGRESSING 06/19/21 splints and scar pads modified on weekly basis and healing progresses Patient will increase Right park activities coordinator strength of right park activities coordinator to 75# so that patient will be able to improve function for basic self-care tasks, home management tasks, leisure / recreation skills and work tasks. Not Addressed 05/18/2021 as patient is not yet allowed to use hand per healing protocol.ONGOING and not indicated at this time 06/19/21; not yet indicated 07/24/21. Patient Goals: Get hand better Planned Interventions, Frequency, and Duration: 1x/week, 12 weeks Total Number of Visits Planned: 12 Planned Treatment Interventions: Custom orthosis fabrication;Therapeutic exercise (61625);Therapeutic activities (49348);Self-jail management (25181);Orthotics management and training (43206,[id number]);Patient/Family/Car egiver Education PLAN FOR NEXT VISIT: Progress ROM, L thumb. See pt. following his appointment with Dr. Hilario. Update home program as indicated. SUBJECTIVE: ROM and scar management. Per Dr. Hilario's office note this date, heavy strengthening is still on hold due to healing fracture. Functional Limitations: lifting;physical activities;recreational activities;gripping;pinching Pain: Pain Pain Level: 2 Pain Location: Thumb - Right Description: Sore Frequency: With movement Post Treatment Pain Post Treatment Pain Level: No Change Post Treatment Pain Location: Thumb - Right Post Treatment Pain Description: Sore PROMIS Scales T-scores: mean of general population = 50. 5 points is clinically meaningfully difference Percentiles provide an indication of how the patient's score ranks in relation to the general population. Higher percentile rankings indicate better function/quality of life. 50th percentile is the average of the general population and indicates half of respondents had a worse score. T-scores: mean of general population = 50. 5 points is clinically meaningfully difference Percentiles provide an indication of how the patient's score ranks in relation to the general population. Higher percentile rankings indicate better function/quality of life. 50th percentile is the average of the general population and indicates half of respondents had a worse score. OBJECTIVE MEASURES WITH LEVEL OF FUNCTION: Sensation - Upper Extremity UE Light Touch Sensation: Grossly Intact (states he has random burning feeling in the ulnar tip of the R thumb (red a (more content not included)... [facility] 07-24-2021 History of Present illness Narrative Episode Visit Count: 12 Therapist That Will Oversee The Plan Of Care: You Ray Start of Care Date: 04/03/21 Onset Date: 03/27/21 Patient Identified by Name and Date of : Yes REHABILITATION AND SPORTS THERAPY OCCUPATIONAL THERAPY PROGRESS REPORT PLAN OF CARE UPDATE: Assessment: Harvey Echevarria demonstrates minimal improvement in physical activities and recreational activities. He has progressed toward goals. Patient continues to present with impairments in range of motion, soft tissue healing, strength and tissue tenderness that interfere with lifting;physical activities;recreational activities;gripping;pinching . Current prognosis is Good due to: current objective clinical presentation;good overall health status;acuteness of condition . He will benefit from continued skilled therapy services to meet the updated goals for this plan of care as noted below. Goals for Episode of Care created on 04/03/21 through 07/02/21 UPDATED 06/19/21, 07/24/21. Patient will report a good understanding of diagnosis and OT recommendations for progression of program. Achieved 05/18/2021 and ongoing, Ongoing 07/24/21. Patient will demonstrate independence with ongoing home recommendations/exercise program throughout therapy plan of care. Achieved 05/18/2021 and ongoing. ONGOING 06/19/21, 07/24/21. Patient will improve function in Right wrist , hand and finger in order to be able to perform basic self-care tasks, home management tasks and leisure / recreation skills. Not Addressed 05/18/2021 as patient is not yet allowed to use hand per healing protocol. ONGOING and PROGRESSING 06/18/21, 07/24/21. Patient will report a decrease in pain in Right hand and finger to 0/10 with basic self-care tasks, home management tasks and leisure / recreation skills. Achieved 05/18/2021 and ongoing Patient will increase AROM of Right wrist , hand and finger to WFL and opposition to base of small finger and digits to DPC in order to be able to improve function for basic self-care tasks, home management tasks and leisure / recreation skills. Achieved 05/18/2021 and ongoing. ONGOING and PROGRESSING 06/18/21, 07/24/21. Patient will independently demonstrate correct application of CUSTOM orthosis and verbalize understanding of proper wear/care. Achieved 05/18/2021 and ongoing. ONGOING and PROGRESSING 06/19/21 splints and scar pads modified on weekly basis and healing progresses Patient will increase Right park activities coordinator strength of right park activities coordinator to 75# so that patient will be able to improve function for basic self-care tasks, home management tasks, leisure / recreation skills and work tasks. Not Addressed 05/18/2021 as patient is not yet allowed to use hand per healing protocol.ONGOING and not indicated at this time 06/19/21; not yet indicated 07/24/21. Patient Goals: Get hand better Planned Interventions, Frequency, and Duration: 1x/week, 12 weeks Total Number of Visits Planned: 12 Planned Treatment Interventions: Custom orthosis fabrication;Therapeutic exercise (25279);Therapeutic activities (60054);Self-jail management (75306);Orthotics management and training ([id number]);Patient/Family/Car egiver Education PLAN FOR NEXT VISIT: Progress ROM, L thumb. See pt. following his appointment with Dr. Hilario. Update home program as indicated. SUBJECTIVE: ROM and scar management. Per Dr. Hilario's office note this date, heavy strengthening is still on hold due to healing fracture. Functional Limitations: lifting;physical activities;recreational activities;gripping;pinching Pain: Pain Pain Level: 2 Pain Location: Thumb - Right Description: Sore Frequency: With movement Post Treatment Pain Post Treatment Pain Level: No Change Post Treatment Pain Location: Thumb - Right Post Treatment Pain Description: Sore PROMIS Scales T-scores: mean of general population = 50. 5 points is clinically meaningfully difference Percentiles provide an indication of how the patient's score ranks in relation to the general population. Higher percentile rankings indicate better function/quality of life. 50th percentile is the average of the general population and indicates half of respondents had a worse score. T-scores: mean of general population = 50. 5 points is clinically meaningfully difference Percentiles provide an indication of how the patient's score ranks in relation to the general population. Higher percentile rankings indicate better function/quality of life. 50th percentile is the average of the general population and indicates half of respondents had a worse score. OBJECTIVE MEASURES WITH LEVEL OF FUNCTION: Sensation - Upper Extremity UE Light Touch Sensation: Grossly Intact (states he has random burning feeling in the ulnar tip of the R thumb (red area)) Hand Skin / Wound: Scar Scar: Tender;Mild adherance (mild hypersensitivity to pressure) Edema Location: right thumb Edema Description: Absent Shoulder AROM: WFL Elbow AROM: WFL Wrist AROM: WFL Right Hand AROM: WFL Thumb AROM: Right Limitation Sensation: Reports tingling or numbness;Kingsland-Darlin R Thumb: 3.61-diminished light touch (dorsal R thumb tip: 2.83) UE AROM R Wrist Extension: (WFL) R Wrist Flexion: (WFL) Right Hand AROM: WFL Thumb AROM: Right Limitation Hand AROM R Thumb MP Extension : 0 Degrees R Thumb MP Flexion : 65 Degrees R Thumb Radial Abduction: (WFL) R Thumb Palmar Abduction: (WFL) R Thumb Opposition (Functional): WFL TREATMENT: Therapeutic Exercise: 2: Thumb AROM all planes 3: Nut/bolt assembly for fine motor 5: Reviewed present HEP with soft theraputty. Add light resistance pinching/pulling. 6: Min cues for ROM in fluidotherapy medium Skilled Intervention: Patient was educated in proper exercise technique and purpose for exercises. Skilled judgment was provided in selection of appropriate interventions. Correct performance of therapeutic exercises was facilitated with verbal and visual cuing. Self-Chcf Management: 1: Reviewed use of cold pack as needed for pain. 2: Information given to patient re: option for thumb prosthesis. 3: Cont. scar massage, gel-lined digit sleeve under splint while at work 6: Reviewed desensitization (light tapping of thumb tip) and sensory stimulation wtih fabric textures 7: Reviewed scar massage 8: Continue silicone pad and coban for daytime wrap of finger 9: Continue use of elastomer scar pad at night. Pt. was instructed to bring elastomer scar pad to next OT visit. Skilled Intervention: Activity progression based on professional judgement. Correct performance of home program was facilitated with verbal and visual cueing. Billing [facility] Session Start Time : 1045 [facility] Session Stop Time : 1130 Therapeutic Exercise Treatment Minutes: 30 Self-Care/Home Management Treatment Minutes: 15 Total Treatment Time Minutes (timed/untimed): 45 NAUN Callejas, CHT documented in this encounter [facility] 07-14-2021 Note HNO ID: [id number] Author: Dara Hilario MD Service: ? Author Type: Physician Type: Progress Notes Filed: 07/14/2021 10:39 AM Note Text: Dara Hilario MD Hand AND Upper Extremity Surgery [address], [place] [address] 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 Patient is doing well postoperatively and advancing through postop protocol. Patient denies any fevers or chills. Patient denies any new drainage from the incision. Improving numbness/tingling and sensitivity to the distal tip. Pain is controlled with [id number] pain medication as needed. Patient is working on range of motion with a home exercise program and occupational therapy. He has started working on [employer]. I am keeping him limited with strengthening thus far due to incomplete fracture healing of the proximal phalanx at the last visit. Work status: Modified duty No past medical history on file. PAST SURGICAL HISTORY Procedure Laterality Date - PAST SURGICAL HISTORY OF right thumb amputaion No family history on file. Social History Tobacco Use - Smoking status: Never Smoker - Smokeless tobacco: Former User Types: Chew Substance Use Topics - Alcohol use: Not on file - Drug use: Not on file MEDICATIONS: No current outpatient medications on file. No current facility-administered medications for this visit. ALLERGIES: ALLERGIES Allergen Reactions - Adhesive Tape (Tiffanie* Rash - Claritin [Loratadin* Rash PHYSICAL EXAM: VITAL SIGNS: There were no vitals taken for this visit. GENERAL: The patient is well developed and well nourished, awake, alert, and oriented with appropriate mood and affect. Normal gait and station. SKIN: The skin surrounding the incision is non-erythematous. No active drainage. No fluctuance or fluid collection. Incision maturing. There is a scabbing area that is being treated by silicone successfully thus far INSPECTION/PALPATION: There is improved swelling around the surgical site, within normal post-op limits, and no palpable joint effusion. TENDERNESS: There is decreased tenderness to palpation over the distal aspect of the proximal phalanx ROM: There is good MP flexion and extension LIGAMENTS: There is no gross ligamentous laxity. MUSCLE: Chalk Extruding Machine Operator strength is decreased due to weakness NEURO: Sensation is grossly intact to light touch in the median, ulnar, and radial distributions. VASCULAR: Strong radial pulse. Excellent capillary refill to all digits. POST OPERATIVE IMAGIN views (PA, oblique, lateral) of the right thumb were obtained, reviewed and interpreted and demonstrate no interval fracture displacement. Increased callus formation at the previously viewed fracture site. Overall alignment of the proximal phalanx is near anatomic. Assessment and Plan: (S67.01XD) Crush injury to thumb, right, subsequent encounter (primary encounter diagnosis) (S67.683D) Open displaced fracture of proximal phalanx of right thumb with routine healing, subsequent encounter I reviewed the X-rays with the patient. At this point I think there is increased callus formation at the fracture site. It is still incompletely healed ulnarly with some sclerosis at the site but seems to be healed enough to begin strengthening. I would like him to start strengthening and pinch with OT in order to regain closer to baseline function and be able to return to work full duty. Plan will be returned to work without restriction after the next visit if therapy is successfully completed and progress is made. Continue scar desensitization. We discussed cold intolerance again. Patient understands the time needed for this to improve. All patient's questions were answered to their satisfaction. Patient/family acknowledges understanding of instructions: Yes Patient advised to call with questions or concerns Follow up in 3 weeks. X-Rays Needed Dara Hilario MD [facility] 07-03-2021 Note HNO ID: [id number] Author: ANDREY Pal/Shereen Service: ? Author Type: Occupational Therapist Type: Progress Notes Filed: 07/03/2021 10:46 AM Note Text: Episode Visit Count: 11 Therapist That Will Oversee The Plan Of Care: You Ray Start of Care Date: 04/03/21 Onset Date: 03/27/21 Patient Identified by Name and Date of : Yes REHABILITATION AND SPORTS THERAPY OCCUPATIONAL THERAPY TREATMENT NOTE ASSESSMENT: Harvey Echevarria tolerated the session with no issues. He demonstrated difficulty with Pain and ROM. The patient will continue to benefit from ongoing skilled occupational therapy to progress toward set goals. Improved tolerance to sensory input on end of thumb Current Frequency: 1x/week Duration: 12 weeks Total Number of Visits Planned: 12 Planned Treatment Interventions: Custom orthosis fabrication;Therapeutic exercise (57116);Therapeutic activities (15962);Self-jail management ([id number]);Orthotics management and training ([id number]);Patient/Family/Car egiver Education PLAN FOR NEXT VISIT: Update plan after MD appt 07-14-21 SUBJECTIVE: ROM and scar management It is not as sensitive as before Functional Limitations: physical activities;recreational activities Pain: Pain Pain Level: 2 Pain Location: Thumb - Right Description: Aching;Sore Frequency: With movement Post Treatment Pain Post Treatment Pain Level: Better Post Treatment Pain Location: Thumb - Right Post Treatment Pain Description: Sore Post Treatment Symptoms: feels better with smaller splint OBJECTIVE MEASURES WITH LEVEL OF FUNCTION: Sensation - Upper Extremity UE Light Touch Sensation: Impaired Hand Skin / Wound: Wound Description;Scar Wound Description: Progressing as expected (clean and dry this date, hypersensative about tip of thumb) Edema Location: right thumb Edema Description: Moderate Shoulder AROM: WFL Elbow AROM: WFL Wrist AROM: WFL Right Hand AROM: WFL Thumb AROM: Right Limitation Sensation: Reports tingling or numbness;Kingsland-Darlin R Thumb: 3.61-diminished light touch (variable with parts out tip 2.83 inconsistantly) R Index Finger: 2.83-normal Dexterity/Coordination: Not Tested Hand Strength R Chalk Extruding Machine Operator Position 2 (lbs): (not indicated) L Chalk Extruding Machine Operator Position 2 (lbs): 105 lbs UE AROM Right Hand AROM: WFL Thumb AROM: Right Limitation Hand AROM R Thumb MP Extension : 0 Degrees R Thumb MP Flexion : 65 Degrees (Left thumb MP flexion 65) R Thumb Flexion Adduction (cm): 0 cm TREATMENT: Therapeutic Exercise: 1: Reviewed AROM to right wrist and hand. Patient performed correctly 2: Reviewed thumb CMC and MP AROM good follow through 3: Reviewed thumb opposition exercises and patient performed correctly 4: Min cues for opposition Purdue pegboard tasks 5: Reviewed putty HEP to small balls 6: Min cues for ROM in fluidotherapy medium Skilled Intervention: Patient was educated in proper exercise technique and purpose for exercises. Skilled judgment was provided in selection of appropriate interventions. Self-Chcf Management: 1: reviewed pain and edema reduction techniques and patient performed correctly 6: Reviewed and updated patient on sensory stim to wound and surrounding tissues, issued sponge and putty for desenstization home program 8: Reviewed silicone pad and coban for daytime wrap of finger 9: Fabricated new elastamer putty scar pad for nightime wear and discusssed role af tissue healing Skilled Intervention: Activity progression based on professional judgement. Billing [facility] Session Start Time : 1000 [facility] Session Stop Time : 1040 Therapeutic Exercise Treatment Minutes: 25 Self-Care/Home Management Treatment Minutes: 15 Total Treatment Time Minutes (timed/untimed): 40 You Forestiman OTR/Shereen [facility] 07-03-2021 History of Present illness Narrative Episode Visit Count: 11 Therapist That Will Oversee The Plan Of Care: You Ray Start of Care Date: 04/03/21 Onset Date: 03/27/21 Patient Identified by Name and Date of : Yes REHABILITATION AND SPORTS THERAPY OCCUPATIONAL THERAPY TREATMENT NOTE ASSESSMENT: Harvey Echevarria tolerated the session with no issues. He demonstrated difficulty with Pain and ROM. The patient will continue to benefit from ongoing skilled occupational therapy to progress toward set goals. Improved tolerance to sensory input on end of thumb Current Frequency: 1x/week Duration: 12 weeks Total Number of Visits Planned: 12 Planned Treatment Interventions: Custom orthosis fabrication;Therapeutic exercise (81349);Therapeutic activities (22585);Self-jail management ([id number]);Orthotics management and training ([id number]);Patient/Family/Car egiver Education PLAN FOR NEXT VISIT: Update plan after MD appt 07-14-21 SUBJECTIVE: ROM and scar management It is not as sensitive as before Functional Limitations: physical activities;recreational activities Pain: Pain Pain Level: 2 Pain Location: Thumb - Right Description: Aching;Sore Frequency: With movement Post Treatment Pain Post Treatment Pain Level: Better Post Treatment Pain Location: Thumb - Right Post Treatment Pain Description: Sore Post Treatment Symptoms: feels better with smaller splint OBJECTIVE MEASURES WITH LEVEL OF FUNCTION: Sensation - Upper Extremity UE Light Touch Sensation: Impaired Hand Skin / Wound: Wound Description;Scar Wound Description: Progressing as expected (clean and dry this date, hypersensative about tip of thumb) Edema Location: right thumb Edema Description: Moderate Shoulder AROM: WFL Elbow AROM: WFL Wrist AROM: WFL Right Hand AROM: WFL Thumb AROM: Right Limitation Sensation: Reports tingling or numbness;Kingsland-Darlin R Thumb: 3.61-diminished light touch (variable with parts out tip 2.83 inconsistantly) R Index Finger: 2.83-normal Dexterity/Coordination: Not Tested Hand Strength R Chalk Extruding Machine Operator Position 2 (lbs): (not indicated) L Chalk Extruding Machine Operator Position 2 (lbs): 105 lbs UE AROM Right Hand AROM: WFL Thumb AROM: Right Limitation Hand AROM R Thumb MP Extension : 0 Degrees R Thumb MP Flexion : 65 Degrees (Left thumb MP flexion 65) R Thumb Flexion Adduction (cm): 0 cm TREATMENT: Therapeutic Exercise: 1: Reviewed AROM to right wrist and hand. Patient performed correctly 2: Reviewed thumb CMC and MP AROM good follow through 3: Reviewed thumb opposition exercises and patient performed correctly 4: Min cues for opposition Purdue pegboard tasks 5: Reviewed putty HEP to small balls 6: Min cues for ROM in fluidotherapy medium Skilled Intervention: Patient was educated in proper exercise technique and purpose for exercises. Skilled judgment was provided in selection of appropriate interventions. Self-Chcf Management: 1: reviewed pain and edema reduction techniques and patient performed correctly 6: Reviewed and updated patient on sensory stim to wound and surrounding tissues, issued sponge and putty for desenstization home program 8: Reviewed silicone pad and coban for daytime wrap of finger 9: Fabricated new elastamer putty scar pad for nightime wear and discusssed role af tissue healing Skilled Intervention: Activity progression based on professional judgement. Billing [facility] Session Start Time : 1000 [facility] Session Stop Time : 1040 Therapeutic Exercise Treatment Minutes: 25 Self-Care/Home Management Treatment Minutes: 15 Total Treatment Time Minutes (timed/untimed): 40 FRANCINE Pal documented in this encounter [facility] 06-26-2021 Note HNO ID: [id number] Author: FRANCINE Pal Service: ? Author Type: Occupational Therapist Type: Progress Notes Filed: 06/26/2021 1:05 PM Note Text: Episode Visit Count: 10 Therapist That Will Oversee The Plan Of Care: You Ray Start of Care Date: 04/03/21 Onset Date: 03/27/21 Patient Identified by Name and Date of : Yes REHABILITATION AND SPORTS THERAPY OCCUPATIONAL THERAPY TREATMENT NOTE ASSESSMENT: Harvey Echevarria tolerated the session with no issues. He demonstrated difficulty with ROM and strength. The patient will continue to benefit from ongoing skilled occupational therapy to progress toward set goals. Improved ROM and decreased sensativity to sensory input into thumb this Current Frequency: 1x/week Duration: 12 weeks Total Number of Visits Planned: 12 Planned Treatment Interventions: Custom orthosis fabrication;Therapeutic exercise (17753);Therapeutic activities (74300);Self-jail management ([id number]);Orthotics management and training ([id number]);Patient/Family/Car egiver Education PLAN FOR NEXT VISIT: Progress HEP and review tolerance to putty balls, scar pad and desensitization and progress as able SUBJECTIVE: ROM and scar management I have been doing exercises with putty and sponge Functional Limitations: physical activities;recreational activities Pain: Pain Pain Level: 2 Pain Location: Thumb - Right Description: Aching;Sore Frequency: With movement Post Treatment Pain Post Treatment Pain Level: Better Post Treatment Pain Location: Thumb - Right Post Treatment Pain Description: Sore Post Treatment Symptoms: feels better with smaller splint OBJECTIVE MEASURES WITH LEVEL OF FUNCTION: Sensation - Upper Extremity UE Light Touch Sensation: Impaired Hand Skin / Wound: Wound Description;Scar Wound Description: Progressing as expected (clean and dry this date, hypersensative about tip of thumb) Edema Location: right thumb Edema Description: Moderate Shoulder AROM: WFL Elbow AROM: WFL Wrist AROM: WFL Right Hand AROM: WFL Thumb AROM: Right Limitation Sensation: Reports tingling or numbness;Kingsland-Darlin R Thumb: 3.61-diminished light touch (variable with parts out tip 2.83 inconsistantly) R Index Finger: 2.83-normal Dexterity/Coordination: Not Tested Hand Strength R Chalk Extruding Machine Operator Position 2 (lbs): (not indicated) L Chalk Extruding Machine Operator Position 2 (lbs): 105 lbs UE AROM Right Hand AROM: WFL Thumb AROM: Right Limitation Hand AROM R Thumb MP Extension : 0 Degrees R Thumb MP Flexion : 65 Degrees R Thumb Flexion Adduction (cm): 0 cm TREATMENT: Therapeutic Exercise: 1: Reviewed AROM to right wrist and hand. Patient performed correctly 2: Reviewed thumb CMC and MP AROM good follow through 3: Reviewed thumb opposition exercises and patient performed correctly 4: Min cues for opposition Purdue pegboard tasks 5: Updated putty HEP to small balls Skilled Intervention: Patient was educated in proper exercise technique and purpose for exercises. Skilled judgment was provided in selection of appropriate interventions. Self-Chcf Management: 1: reviewed pain and edema reduction techniques and patient performed correctly 2: Splint modified for fit 6: Reviewed and updated patient on sensory stim to wound and surrounding tissues, issued sponge and putty for desenstization home program 8: Reviewed silicone pad and coban for daytime wrap of finger 9: Fabricated new elastamer putty scar pad for nightime wear and discusssed role af tissue healing Skilled Intervention: Activity progression based on professional judgement. Billing [facility] Session Start Time : 1215 [facility] Session Stop Time : 1255 Therapeutic Exercise Treatment Minutes: 15 Self-Care/Home Management Treatment Minutes: 25 Total Treatment Time Minutes (timed/untimed): 40 You Ray, OTR/L [facility] 06-26-2021 History of Present illness Narrative Episode Visit Count: 10 Therapist That Will Oversee The Plan Of Care: You Ray Start of Care Date: 04/03/21 Onset Date: 03/27/21 Patient Identified by Name and Date of : Yes REHABILITATION AND SPORTS THERAPY OCCUPATIONAL THERAPY TREATMENT NOTE ASSESSMENT: Harvey Echevarria tolerated the session with no issues. He demonstrated difficulty with ROM and strength. The patient will continue to benefit from ongoing skilled occupational therapy to progress toward set goals. Improved ROM and decreased sensativity to sensory input into thumb this Current Frequency: 1x/week Duration: 12 weeks Total Number of Visits Planned: 12 Planned Treatment Interventions: Custom orthosis fabrication;Therapeutic exercise (45845);Therapeutic activities (58897);Self-jail management ([id number]);Orthotics management and training ([id number]);Patient/Family/Car egiver Education PLAN FOR NEXT VISIT: Progress HEP and review tolerance to putty balls, scar pad and desensitization and progress as able SUBJECTIVE: ROM and scar management I have been doing exercises with putty and sponge Functional Limitations: physical activities;recreational activities Pain: Pain Pain Level: 2 Pain Location: Thumb - Right Description: Aching;Sore Frequency: With movement Post Treatment Pain Post Treatment Pain Level: Better Post Treatment Pain Location: Thumb - Right Post Treatment Pain Description: Sore Post Treatment Symptoms: feels better with smaller splint OBJECTIVE MEASURES WITH LEVEL OF FUNCTION: Sensation - Upper Extremity UE Light Touch Sensation: Impaired Hand Skin / Wound: Wound Description;Scar Wound Description: Progressing as expected (clean and dry this date, hypersensative about tip of thumb) Edema Location: right thumb Edema Description: Moderate Shoulder AROM: WFL Elbow AROM: WFL Wrist AROM: WFL Right Hand AROM: WFL Thumb AROM: Right Limitation Sensation: Reports tingling or numbness;Kingsland-Darlin R Thumb: 3.61-diminished light touch (variable with parts out tip 2.83 inconsistantly) R Index Finger: 2.83-normal Dexterity/Coordination: Not Tested Hand Strength R Chalk Extruding Machine Operator Position 2 (lbs): (not indicated) L Chalk Extruding Machine Operator Position 2 (lbs): 105 lbs UE AROM Right Hand AROM: WFL Thumb AROM: Right Limitation Hand AROM R Thumb MP Extension : 0 Degrees R Thumb MP Flexion : 65 Degrees R Thumb Flexion Adduction (cm): 0 cm TREATMENT: Therapeutic Exercise: 1: Reviewed AROM to right wrist and hand. Patient performed correctly 2: Reviewed thumb CMC and MP AROM good follow through 3: Reviewed thumb opposition exercises and patient performed correctly 4: Min cues for opposition Purdue pegboard tasks 5: Updated putty HEP to small balls Skilled Intervention: Patient was educated in proper exercise technique and purpose for exercises. Skilled judgment was provided in selection of appropriate interventions. Self-Chcf Management: 1: reviewed pain and edema reduction techniques and patient performed correctly 2: Splint modified for fit 6: Reviewed and updated patient on sensory stim to wound and surrounding tissues, issued sponge and putty for desenstization home program 8: Reviewed silicone pad and coban for daytime wrap of finger 9: Fabricated new elastamer putty scar pad for nightime wear and discusssed role af tissue healing Skilled Intervention: Activity progression based on professional judgement. Billing [facility] Session Start Time : 1215 [facility] Session Stop Time : 1255 Therapeutic Exercise Treatment Minutes: 15 Self-Care/Home Management Treatment Minutes: 25 Total Treatment Time Minutes (timed/untimed): 40 FRANCINE Pal documented in this encounter [facility] 06-19-2021 Note HNO ID: [id number] Author: FRANCINE Pal Service: ? Author Type: Occupational Therapist Type: Progress Notes Filed: 06/19/2021 12:46 PM Note Text: Episode Visit Count: 9 Therapist That Will Oversee The Plan Of Care: You Ray Start of Care Date: 04/03/21 Onset Date: 03/27/21 Patient Identified by Name and Date of : Yes REHABILITATION AND SPORTS THERAPY OCCUPATIONAL THERAPY PROGRESS REPORT PLAN OF CARE UPDATE: Assessment: Harvey Echevarria demonstrates moderate improvement in gripping, pulling, pushing and carrying. He has progressed toward goals. Patient continues to present with impairments in ADL's, joint mobility, overall function, range of motion and strength that interfere with physical activities;recreational activities . Current prognosis is Good due to: current objective clinical presentation;good overall health status;acuteness of condition . He will benefit from continued skilled therapy services to meet the updated goals for this plan of care as noted below. Goals for Episode of Care created on 04/03/21 through 07/02/21 UPDATED 06/19/21 Patient will report a good understanding of diagnosis and OT recommendations for progression of program. Achieved 05/18/2021 and ongoing, Patient will demonstrate independence with ongoing home recommendations/exercise program throughout therapy plan of care. Achieved 05/18/2021 and ongoing. ONGOING 06/19/21 Patient will improve function in Right wrist , hand and finger in order to be able to perform basic self-care tasks, home management tasks and leisure / recreation skills. Not Addressed 05/18/2021 as patient is not yet allowed to use hand per healing protocol. ONGOING and PROGRESSING 06/18/21 Patient will report a decrease in pain in Right hand and finger to 0/10 with basic self-care tasks, home management tasks and leisure / recreation skills. Achieved 05/18/2021 and ongoing Patient will increase AROM of Right wrist , hand and finger to WFL and opposition to base of small finger and digits to DPC in order to be able to improve function for basic self-care tasks, home management tasks and leisure / recreation skills. Achieved 05/18/2021 and ongoing. ONGOING and PROGRESSING 06/18/21 Patient will independently demonstrate correct application of CUSTOM orthosis and verbalize understanding of proper wear/care. Achieved 05/18/2021 and ongoing. ONGOING and PROGRESSING 06/19/21 splints and scar pads modified on weekly basis and healing progresses Patient will increase Right park activities coordinator strength of right park activities coordinator to 75# so that patient will be able to improve function for basic self-care tasks, home management tasks, leisure / recreation skills and work tasks. Not Addressed 05/18/2021 as patient is not yet allowed to use hand per healing protocol.ONGOING and not indicated at this time 06/19/21 Patient Goals: Get hand better Planned Interventions, Frequency, and Duration: 1x/week, 12 weeks Total Number of Visits Planned: 12 Planned Treatment Interventions: Custom orthosis fabrication;Therapeutic exercise (90468);Therapeutic activities (86176);Self-jail management ([id number]);Orthotics management and training ([id number]);Patient/Family/Car egiver Education PLAN FOR NEXT VISIT: Update HEP and review tolerance to scar pad and desensitization and progress as able SUBJECTIVE: ROM and scar management I am healed up Functional Limitations: physical activities;recreational activities Pain: Pain Pain Level: 3 Pain Location: Thumb - Right Description: Shooting;Sore Frequency: With movement Post Treatment Pain Post Treatment Pain Level: Better Post Treatment Pain Location: Thumb - Right Post Treatment Pain Description: Sore Post Treatment Symptoms: feels better with smaller splint PROMIS Scales T-scores: mean of general population = 50. 5 points is clinically meaningfully difference Percentiles provide an indication of how the patient's score ranks in relation to the general population. Higher percentile rankings indicate better function/quality of life. 50th percentile is the average of the general population and indicates half of respondents had a worse score. T-scores: mean of general population = 50. 5 points is clinically meaningfully difference Percentiles provide an indication of how the patient's score ranks in relation to the general population. Higher percentile rankings indicate better function/quality of life. 50th percentile is the average of the general population and indicates half of respondents had a worse score. OBJECTIVE MEASURES WITH LEVEL OF FUNCTION: Sensation - Upper Extremity UE Light Touch Sensation: Impaired Hand Skin / Wound: Wound Description;Scar Wound Description: Progressing as expected (clean and dry this date, hypersensative about tip of thumb) Edema Location: right thumb Edema Description: Moderate Shoulder AROM: WFL Elbow AROM: WFL Wrist AROM: WFL (more content not included)... [facility] 06-19-2021 History of Present illness Narrative Episode Visit Count: 9 Therapist That Will Oversee The Plan Of Care: You Ray Start of Care Date: 04/03/21 Onset Date: 03/27/21 Patient Identified by Name and Date of : Yes REHABILITATION AND SPORTS THERAPY OCCUPATIONAL THERAPY PROGRESS REPORT PLAN OF CARE UPDATE: Assessment: Harvey Echevarria demonstrates moderate improvement in gripping, pulling, pushing and carrying. He has progressed toward goals. Patient continues to present with impairments in ADL's, joint mobility, overall function, range of motion and strength that interfere with physical activities;recreational activities . Current prognosis is Good due to: current objective clinical presentation;good overall health status;acuteness of condition . He will benefit from continued skilled therapy services to meet the updated goals for this plan of care as noted below. Goals for Episode of Care created on 04/03/21 through 07/02/21 UPDATED 06/19/21 Patient will report a good understanding of diagnosis and OT recommendations for progression of program. Achieved 05/18/2021 and ongoing, Patient will demonstrate independence with ongoing home recommendations/exercise program throughout therapy plan of care. Achieved 05/18/2021 and ongoing. ONGOING 06/19/21 Patient will improve function in Right wrist , hand and finger in order to be able to perform basic self-care tasks, home management tasks and leisure / recreation skills. Not Addressed 05/18/2021 as patient is not yet allowed to use hand per healing protocol. ONGOING and PROGRESSING 06/18/21 Patient will report a decrease in pain in Right hand and finger to 0/10 with basic self-care tasks, home management tasks and leisure / recreation skills. Achieved 05/18/2021 and ongoing Patient will increase AROM of Right wrist , hand and finger to WFL and opposition to base of small finger and digits to DPC in order to be able to improve function for basic self-care tasks, home management tasks and leisure / recreation skills. Achieved 05/18/2021 and ongoing. ONGOING and PROGRESSING 06/18/21 Patient will independently demonstrate correct application of CUSTOM orthosis and verbalize understanding of proper wear/care. Achieved 05/18/2021 and ongoing. ONGOING and PROGRESSING 06/19/21 splints and scar pads modified on weekly basis and healing progresses Patient will increase Right park activities coordinator strength of right park activities coordinator to 75# so that patient will be able to improve function for basic self-care tasks, home management tasks, leisure / recreation skills and work tasks. Not Addressed 05/18/2021 as patient is not yet allowed to use hand per healing protocol.ONGOING and not indicated at this time 06/19/21 Patient Goals: Get hand better Planned Interventions, Frequency, and Duration: 1x/week, 12 weeks Total Number of Visits Planned: 12 Planned Treatment Interventions: Custom orthosis fabrication;Therapeutic exercise (02407);Therapeutic activities (95351);Self-jail management ([id number]);Orthotics management and training ([id number]);Patient/Family/Car egiver Education PLAN FOR NEXT VISIT: Update HEP and review tolerance to scar pad and desensitization and progress as able SUBJECTIVE: ROM and scar management I am healed up Functional Limitations: physical activities;recreational activities Pain: Pain Pain Level: 3 Pain Location: Thumb - Right Description: Shooting;Sore Frequency: With movement Post Treatment Pain Post Treatment Pain Level: Better Post Treatment Pain Location: Thumb - Right Post Treatment Pain Description: Sore Post Treatment Symptoms: feels better with smaller splint PROMIS Scales T-scores: mean of general population = 50. 5 points is clinically meaningfully difference Percentiles provide an indication of how the patient's score ranks in relation to the general population. Higher percentile rankings indicate better function/quality of life. 50th percentile is the average of the general population and indicates half of respondents had a worse score. T-scores: mean of general population = 50. 5 points is clinically meaningfully difference Percentiles provide an indication of how the patient's score ranks in relation to the general population. Higher percentile rankings indicate better function/quality of life. 50th percentile is the average of the general population and indicates half of respondents had a worse score. OBJECTIVE MEASURES WITH LEVEL OF FUNCTION: Sensation - Upper Extremity UE Light Touch Sensation: Impaired Hand Skin / Wound: Wound Description;Scar Wound Description: Progressing as expected (clean and dry this date, hypersensative about tip of thumb) Edema Location: right thumb Edema Description: Moderate Shoulder AROM: WFL Elbow AROM: WFL Wrist AROM: WFL Right Hand AROM: WFL Thumb AROM: Right Limitation Sensation: Reports tingling or numbness;Kingsland-Darlin R Thumb: 3.61-diminished light touch (variable with parts out tip 2.83 inconsistantly) R Index Finger: 2.83-normal Dexterity/Coordination: Not Tested Hand Strength R Chalk Extruding Machine Operator Position 2 (lbs): (not indicated) L Chalk Extruding Machine Operator Position 2 (lbs): 105 lbs UE AROM Right Hand AROM: WFL Thumb AROM: Right Limitation Hand AROM R Thumb MP Extension : 0 Degrees R Thumb MP Flexion : 62 Degrees R Thumb Flexion Adduction (cm): 0 cm TREATMENT: Therapeutic Exercise: 1: Reviewed AROM to right wrist and hand. Patient performed correctly 2: Reviewed thumb CMC and MP AROM good follow through 3: Reviewed thumb opposition exercises and patient performed correctly Skilled Intervention: Patient was educated in proper exercise technique and purpose for exercises. Skilled judgment was provided in selection of appropriate interventions. Self-Chcf Management: 1: reviewed pain and edema reduction techniques and patient performed correctly 2: Splint modified for fit 6: Reviewed patient on sensory stim to wound and surrounding tissues, issued sponge and putty for desenstization home program 8: Issued sliicaon pad and coban for daytime wrap of finger 9: Fabricated elastamer putty sacar pad for nightime wear and discusssed role af tissue healing Skilled Intervention: Skilled judgment in the selection of proper modification for activity of daily living/home management based on clinical presentation, deficits, and needs. Activity progression based on professional judgement. Billing [facility] Session Start Time : 929 [facility] Session Stop Time : 1029 Therapeutic Exercise Treatment Minutes: 30 Self-Care/Home Management Treatment Minutes: 30 Total Treatment Time Minutes (timed/untimed): 30 FRANCINE Pal documented in this encounter [facility] 06-09-2021 Note HNO ID: [id number] Author: Dara Hilario MD Service: ? Author Type: Physician Type: Progress Notes Filed: 07/09/2021 7:31 PM Note Text: Dara Hilario MD Hand AND Upper Extremity Surgery [address], [place] [address] [address], 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 Patient is doing well postoperatively and advancing through postop protocol. Patient denies any fevers or chills. Patient denies any new drainage from the incision. Has stable distal thumb stump numbness/tingling. Pain is controlled with OTC pain medication as needed. Patient is working on range of motion with a home exercise program and occupational therapy. Work status: Has been back on modified duty Incision has been healing well. No past medical history on file. PAST SURGICAL HISTORY Procedure Laterality Date - PAST SURGICAL HISTORY OF right thumb amputaion No family history on file. Social History Tobacco Use - Smoking status: Never Smoker - Smokeless tobacco: Former User Types: Chew Substance Use Topics - Alcohol use: Not on file - Drug use: Not on file MEDICATIONS: No current outpatient medications on file. No current facility-administered medications for this visit. ALLERGIES: ALLERGIES Allergen Reactions - Adhesive Tape (Tiffanie* Rash - Claritin [Loratadin* Rash PHYSICAL EXAM: VITAL SIGNS: Resp 16 Ht 5' 8 (1.73m) Wt 124 lb (56.2kg) BMI 18.86 kg/(m2). GENERAL: The patient is well developed and well nourished, awake, alert, and oriented with appropriate mood and affect. Normal gait and station. SKIN: The skin surrounding the incision is non-erythematous. No active drainage. No fluctuance or fluid collection. Thumb is healing well INSPECTION/PALPATION: There is diffuse, improving swelling around the surgical site, within normal post-op limits, and no palpable joint effusion. TENDERNESS: There is tenderness to palpation over the distal tip worst ulnarly ROM: There is good MP flexion which is symmetric LIGAMENTS: There is no gross ligamentous laxity. MUSCLE: Chalk Extruding Machine Operator strength is not tested NEURO: Sensation is grossly intact to light touch in the median, ulnar, and radial distributions except at tip of thumb VASCULAR: Strong radial pulse. Excellent capillary refill to all digits. POST OPERATIVE IMAGIN views (PA, oblique, lateral) of the right thumb were obtained, reviewed and interpreted and demonstrate fracture at the distal aspect of the proximal phalanx with some interval callus. Assessment and Plan: (S67.01XD) Crush injury to thumb, right, subsequent encounter (primary encounter diagnosis) (R00.381N) Open displaced fracture of proximal phalanx of right thumb with routine healing, subsequent encounter I reviewed the X-rays with the patient. I think his area of maximal pain correlates with the lingering fracture line. We will continue to monitor for fracture healing. He will continue to work on range of motion with OT. I would like to wait on strengthening until we see more healing at the fracture site. Continue to work on daily wound care. All patient's questions were answered to their satisfaction. Patient/family acknowledges understanding of instructions: Yes Patient advised to call with questions or concerns Follow up in 2 - 4 weeks. X-Rays Needed Dara Hilario MD [facility] 06-09-2021 History of Present illness Narrative Images from the original note were not included. Dara Hilario MD Hand & Upper Extremity Surgery [address], [facility] 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 Patient is doing well postoperatively and advancing through postop protocol. Patient denies any fevers or chills. Patient denies any new drainage from the incision. Has stable distal thumb stump numbness/tingling. Pain is controlled with OTC pain medication as needed. Patient is working on range of motion with a home exercise program and occupational therapy. Work status: Has been back on modified duty Incision has been healing well. No past medical history on file. PAST SURGICAL HISTORY Procedure Laterality Date PAST SURGICAL HISTORY OF right thumb amputaion No family history on file. Social History Tobacco Use Smoking status: Never Smoker Smokeless tobacco: Former User Types: Chew Substance Use Topics Alcohol use: Not on file Drug use: Not on file MEDICATIONS: No current outpatient medications on file. No current facility-administered medications for this visit. ALLERGIES: ALLERGIES Allergen Reactions Adhesive Tape (Tiffanie* Rash Claritin [Loratadin* Rash PHYSICAL EXAM: VITAL SIGNS: Resp 16 Ht 5' 8 (1.73m) Wt 124 lb (56.2kg) BMI 18.86 kg/(m^2). GENERAL: The patient is well developed and well nourished, awake, alert, and oriented with appropriate mood and affect. Normal gait and station. SKIN: The skin surrounding the incision is non-erythematous. No active drainage. No fluctuance or fluid collection. Thumb is healing well INSPECTION/PALPATION: There is diffuse, improving swelling around the surgical site, within normal post-op limits, and no palpable joint effusion. TENDERNESS: There is tenderness to palpation over the distal tip worst ulnarly ROM: There is good MP flexion which is symmetric LIGAMENTS: There is no gross ligamentous laxity. MUSCLE: Chalk Extruding Machine Operator strength is not tested NEURO: Sensation is grossly intact to light touch in the median, ulnar, and radial distributions except at tip of thumb VASCULAR: Strong radial pulse. Excellent capillary refill to all digits. POST OPERATIVE IMAGIN views (PA, oblique, lateral) of the right thumb were obtained, reviewed and interpreted and demonstrate fracture at the distal aspect of the proximal phalanx with some interval callus. Assessment and Plan: (S67.01XD) Crush injury to thumb, right, subsequent encounter (primary encounter diagnosis) (P86.589D) Open displaced fracture of proximal phalanx of right thumb with routine healing, subsequent encounter I reviewed the X-rays with the patient. I think his area of maximal pain correlates with the lingering fracture line. We will continue to monitor for fracture healing. He will continue to work on range of motion with OT. I would like to wait on strengthening until we see more healing at the fracture site. Continue to work on daily wound care. All patient's questions were answered to their satisfaction. Patient/family acknowledges understanding of instructions: Yes Patient advised to call with questions or concerns Follow up in 2 - 4 weeks. X-Rays Needed Dara Hilario MD documented in this encounter [facility] 06-05-2021 Note HNO ID: [id number] Author: You Ray OTR/L Service: ? Author Type: Occupational Therapist Type: Progress Notes Filed: 06/05/2021 10:22 AM Note Text: Episode Visit Count: 8 Therapist That Will Oversee The Plan Of Care: You Ray Start of Care Date: 04/03/21 Onset Date: 03/27/21 Patient Identified by Name and Date of : Yes REHABILITATION AND SPORTS THERAPY OCCUPATIONAL THERAPY TREATMENT NOTE ASSESSMENT: Harvey Echevarria tolerated the session with no issues. He demonstrated difficulty with ROM and pain. The patient will continue to benefit from ongoing skilled occupational therapy to progress toward set goals. Healing well and improved ROM this date from last session Current Frequency: 1x/week Duration: 12 weeks Total Number of Visits Planned: 12 Planned Treatment Interventions: Custom orthosis fabrication;Therapeutic exercise (75028);Therapeutic activities (20070);Self-jail management ([id number]);Orthotics management and training ([id number]);Patient/Family/Car egiver Education PLAN FOR NEXT VISIT: Monitor wound healing and progress with ROM and use of hand as able update skin care as needed after MD appt SUBJECTIVE: update splint to tip protector and improve thumb mobility It is doing good, I have been doing the exercises Functional Limitations: physical activities;recreational activities Pain: Pain Pain Level: 2 Pain Location: Thumb - Right Description: Sore;Stiffness Frequency: With movement Post Treatment Pain Post Treatment Pain Level: Better Post Treatment Pain Location: Thumb - Right Post Treatment Pain Description: Sore Post Treatment Symptoms: feels better with smaller splint OBJECTIVE MEASURES WITH LEVEL OF FUNCTION: Sensation - Upper Extremity UE Light Touch Sensation: Impaired Hand Skin / Wound: Wound Description Wound Description: Progressing as expected (clean and dry this date no drainage, sutures intact in scabbing area of wound) Edema Location: right thumb Edema Description: Moderate Shoulder AROM: WFL Elbow AROM: WFL Wrist AROM: WFL Right Hand AROM: WFL Thumb AROM: Right Limitation Sensation: Reports tingling or numbness;Kingsland-Darlin R Thumb: 3.61-diminished light touch (variable with difficulty noting specific location of sensory input on either area of thumb) R Index Finger: 2.83-normal Dexterity/Coordination: Not Tested Hand Strength R Chalk Extruding Machine Operator Position 2 (lbs): (not indicated) L Chalk Extruding Machine Operator Position 2 (lbs): 105 lbs UE AROM Right Hand AROM: WFL Thumb AROM: Right Limitation Hand AROM R Thumb MP Extension : 0 Degrees R Thumb MP Flexion : 56 Degrees R Thumb Flexion Adduction (cm): 0 cm TREATMENT: Therapeutic Exercise: 1: Reviewed AROM to right wrist and hand. Patient performed correctly 2: Reviewed thumb CMC and MP AROM good follow through 3: Reviewed thumb opposition exercises and patient performed correctly Skilled Intervention: Patient was educated in proper exercise technique and purpose for exercises. Skilled judgment was provided in selection of appropriate interventions. Self-Chcf Management: 1: reviewed pain and edema reduction techniques and patient performed correctly 2: Splint modified for fit 3: reviewed scar care and use of silicone to soften scar. Tolerating silicone cap to wear under splint. 5: Reviewed dresing change and wound managment with light dressing and coban for healing as able 6: Reviewed patient on sensory stim to wound and surrounding tissues 7: Distal suture removed without issue this date, two sutures intact in volar proximal healing area Skilled Intervention: Activity progression based on professional judgement. Billing [facility] Session Start Time : 929 [facility] Session Stop Time : 999 Therapeutic Exercise Treatment Minutes: 15 Self-Care/Home Management Treatment Minutes: 15 Total Treatment Time Minutes (timed/untimed): 30 ANDREY Pal/Shereen [facility] 06-05-2021 History of Present illness Narrative Episode Visit Count: 8 Therapist That Will Oversee The Plan Of Care: You Ray Start of Care Date: 04/03/21 Onset Date: 03/27/21 Patient Identified by Name and Date of : Yes REHABILITATION AND SPORTS THERAPY OCCUPATIONAL THERAPY TREATMENT NOTE ASSESSMENT: Harvey Echevarria tolerated the session with no issues. He demonstrated difficulty with ROM and pain. The patient will continue to benefit from ongoing skilled occupational therapy to progress toward set goals. Healing well and improved ROM this date from last session Current Frequency: 1x/week Duration: 12 weeks Total Number of Visits Planned: 12 Planned Treatment Interventions: Custom orthosis fabrication;Therapeutic exercise (42794);Therapeutic activities (63830);Self-jail management ([id number]);Orthotics management and training ([id number]);Patient/Family/Car egiver Education PLAN FOR NEXT VISIT: Monitor wound healing and progress with ROM and use of hand as able update skin care as needed after MD appt SUBJECTIVE: update splint to tip protector and improve thumb mobility It is doing good, I have been doing the exercises Functional Limitations: physical activities;recreational activities Pain: Pain Pain Level: 2 Pain Location: Thumb - Right Description: Sore;Stiffness Frequency: With movement Post Treatment Pain Post Treatment Pain Level: Better Post Treatment Pain Location: Thumb - Right Post Treatment Pain Description: Sore Post Treatment Symptoms: feels better with smaller splint OBJECTIVE MEASURES WITH LEVEL OF FUNCTION: Sensation - Upper Extremity UE Light Touch Sensation: Impaired Hand Skin / Wound: Wound Description Wound Description: Progressing as expected (clean and dry this date no drainage, sutures intact in scabbing area of wound) Edema Location: right thumb Edema Description: Moderate Shoulder AROM: WFL Elbow AROM: WFL Wrist AROM: WFL Right Hand AROM: WFL Thumb AROM: Right Limitation Sensation: Reports tingling or numbness;Kingsland-Darlin R Thumb: 3.61-diminished light touch (variable with difficulty noting specific location of sensory input on either area of thumb) R Index Finger: 2.83-normal Dexterity/Coordination: Not Tested Hand Strength R Chalk Extruding Machine Operator Position 2 (lbs): (not indicated) L Chalk Extruding Machine Operator Position 2 (lbs): 105 lbs UE AROM Right Hand AROM: WFL Thumb AROM: Right Limitation Hand AROM R Thumb MP Extension : 0 Degrees R Thumb MP Flexion : 56 Degrees R Thumb Flexion Adduction (cm): 0 cm TREATMENT: Therapeutic Exercise: 1: Reviewed AROM to right wrist and hand. Patient performed correctly 2: Reviewed thumb CMC and MP AROM good follow through 3: Reviewed thumb opposition exercises and patient performed correctly Skilled Intervention: Patient was educated in proper exercise technique and purpose for exercises. Skilled judgment was provided in selection of appropriate interventions. Self-Chcf Management: 1: reviewed pain and edema reduction techniques and patient performed correctly 2: Splint modified for fit 3: reviewed scar care and use of silicone to soften scar. Tolerating silicone cap to wear under splint. 5: Reviewed dresing change and wound managment with light dressing and coban for healing as able 6: Reviewed patient on sensory stim to wound and surrounding tissues 7: Distal suture removed without issue this date, two sutures intact in volar proximal healing area Skilled Intervention: Activity progression based on professional judgement. Billing [facility] Session Start Time : 929 [facility] Session Stop Time : 1000 Therapeutic Exercise Treatment Minutes: 15 Self-Care/Home Management Treatment Minutes: 15 Total Treatment Time Minutes (timed/untimed): 30 FRANCINE Pal documented in this encounter [facility] 05-26-2021 Note HNO ID: [id number] Author: FRANCINE Pal Service: ? Author Type: Occupational Therapist Type: Progress Notes Filed: 05/26/2021 1:10 PM Note Text: Episode Visit Count: 7 Therapist That Will Oversee The Plan Of Care: You Ray Start of Care Date: 04/03/21 Onset Date: 03/27/21 Patient Identified by Name and Date of : Yes REHABILITATION AND SPORTS THERAPY OCCUPATIONAL THERAPY TREATMENT NOTE ASSESSMENT: Harvey Echevarria tolerated the session with no issues. He demonstrated difficulty with pain and ROM of thumb. The patient will continue to benefit from ongoing skilled occupational therapy to progress toward set goals. Increased ROM of thumb and clean dry wound this date, no issues noted Current Frequency: 1x/week Duration: 12 weeks Total Number of Visits Planned: 12 Planned Treatment Interventions: Custom orthosis fabrication;Therapeutic exercise (02098);Therapeutic activities (10672);Self-jail management ([id number]);Orthotics management and training ([id number]);Patient/Family/Car egiver Education PLAN FOR NEXT VISIT: Monitor wound healing and progress with ROM and use of hand as able SUBJECTIVE: update splint to tip protector and improve thumb mobility It was draining the other day, better now Functional Limitations: physical activities;recreational activities Pain: Pain Pain Level: 3 Pain Location: Thumb - Right Description: Stiffness;Sore Frequency: With movement Post Treatment Pain Post Treatment Pain Level: Better Post Treatment Pain Location: Thumb - Right Post Treatment Pain Description: Sore Post Treatment Symptoms: feels better with smaller splint OBJECTIVE MEASURES WITH LEVEL OF FUNCTION: Sensation - Upper Extremity UE Light Touch Sensation: Impaired Hand Skin / Wound: Wound Description Wound Description: Progressing as expected (clean and dry this date no drainage, sutures intact is scabbin area of wound) Edema Location: right thumb Edema Description: Moderate Shoulder AROM: WFL Elbow AROM: WFL Wrist AROM: WFL Right Hand AROM: WFL Thumb AROM: Right Limitation Sensation: Reports tingling or numbness;Kingsland-Darlin R Thumb: 3.61-diminished light touch (variable with difficulty noting specific location of sensory input on either area of thumb) R Index Finger: 2.83-normal Dexterity/Coordination: Not Tested Hand Strength R Chalk Extruding Machine Operator Position 2 (lbs): (not indicated) L Chalk Extruding Machine Operator Position 2 (lbs): 105 lbs UE AROM Right Hand AROM: WFL Thumb AROM: Right Limitation Hand AROM R Thumb MP Extension : -20 Degrees R Thumb MP Flexion : 56 Degrees R Thumb Flexion Adduction (cm): 0 cm TREATMENT: Therapeutic Exercise: 1: Reviewed AROM to right wrist and hand. Patient performed correctly 2: Reviewed thumb CMC and MP AROM with handout issued. Patient perfromed correctly and agreed to follow through at home 3: Reviewed thumb opposition exercises and patient performed correctly Skilled Intervention: Patient was educated in proper exercise technique and purpose for exercises. Skilled judgment was provided in selection of appropriate interventions. Self-Chcf Management: 1: reviewed pain and edema reduction techniques and patient performed correctly 2: reviewed splint wear and care instructions 3: reviewed scar care and use of silicone to soften scar. Tolerating silicone cap to wear under splint. 4: Discussed with patient and mother wound status and no concerns currently 5: Reviewed dressing change and wound managment 6: Instructed patient on sensory stim to wound and surrounding tissues Skilled Intervention: Skilled judgment in the selection of proper modification for activity of daily living/home management based on clinical presentation, deficits, and needs. Activity progression based on professional judgement. Billing [facility] Session Start Time : 1124 [facility] Session Stop Time : 1200 Therapeutic Exercise Treatment Minutes: 13 Self-Care/Home Management Treatment Minutes: 12 Total Treatment Time Minutes (timed/untimed): 25 You Ray OTR/L Episode Visit Count: 7 Therapist That Will Oversee The Plan Of Care: You Ray Start of Care Date: 04/03/21 Onset Date: 03/27/21 Patient Identified by Name and Date of : Arsalan [facility] 05-26-2021 History of Present illness Narrative Episode Visit Count: 7 Therapist That Will Oversee The Plan Of Care: You Ray Start of Care Date: 04/03/21 Onset Date: 03/27/21 Patient Identified by Name and Date of : Yes REHABILITATION AND SPORTS THERAPY OCCUPATIONAL THERAPY TREATMENT NOTE ASSESSMENT: Harvey Echevarria tolerated the session with no issues. He demonstrated difficulty with pain and ROM of thumb. The patient will continue to benefit from ongoing skilled occupational therapy to progress toward set goals. Increased ROM of thumb and clean dry wound this date, no issues noted Current Frequency: 1x/week Duration: 12 weeks Total Number of Visits Planned: 12 Planned Treatment Interventions: Custom orthosis fabrication;Therapeutic exercise (66945);Therapeutic activities (34842);Self-jail management ([id number]);Orthotics management and training ([id number]);Patient/Family/Car egiver Education PLAN FOR NEXT VISIT: Monitor wound healing and progress with ROM and use of hand as able SUBJECTIVE: update splint to tip protector and improve thumb mobility It was draining the other day, better now Functional Limitations: physical activities;recreational activities Pain: Pain Pain Level: 3 Pain Location: Thumb - Right Description: Stiffness;Sore Frequency: With movement Post Treatment Pain Post Treatment Pain Level: Better Post Treatment Pain Location: Thumb - Right Post Treatment Pain Description: Sore Post Treatment Symptoms: feels better with smaller splint OBJECTIVE MEASURES WITH LEVEL OF FUNCTION: Sensation - Upper Extremity UE Light Touch Sensation: Impaired Hand Skin / Wound: Wound Description Wound Description: Progressing as expected (clean and dry this date no drainage, sutures intact is scabbin area of wound) Edema Location: right thumb Edema Description: Moderate Shoulder AROM: WFL Elbow AROM: WFL Wrist AROM: WFL Right Hand AROM: WFL Thumb AROM: Right Limitation Sensation: Reports tingling or numbness;Kingsland-Darlin R Thumb: 3.61-diminished light touch (variable with difficulty noting specific location of sensory input on either area of thumb) R Index Finger: 2.83-normal Dexterity/Coordination: Not Tested Hand Strength R Chalk Extruding Machine Operator Position 2 (lbs): (not indicated) L Chalk Extruding Machine Operator Position 2 (lbs): 105 lbs UE AROM Right Hand AROM: WFL Thumb AROM: Right Limitation Hand AROM R Thumb MP Extension : -20 Degrees R Thumb MP Flexion : 56 Degrees R Thumb Flexion Adduction (cm): 0 cm TREATMENT: Therapeutic Exercise: 1: Reviewed AROM to right wrist and hand. Patient performed correctly 2: Reviewed thumb CMC and MP AROM with handout issued. Patient perfromed correctly and agreed to follow through at home 3: Reviewed thumb opposition exercises and patient performed correctly Skilled Intervention: Patient was educated in proper exercise technique and purpose for exercises. Skilled judgment was provided in selection of appropriate interventions. Self-Chcf Management: 1: reviewed pain and edema reduction techniques and patient performed correctly 2: reviewed splint wear and care instructions 3: reviewed scar care and use of silicone to soften scar. Tolerating silicone cap to wear under splint. 4: Discussed with patient and mother wound status and no concerns currently 5: Reviewed dressing change and wound managment 6: Instructed patient on sensory stim to wound and surrounding tissues Skilled Intervention: Skilled judgment in the selection of proper modification for activity of daily living/home management based on clinical presentation, deficits, and needs. Activity progression based on professional judgement. Billing [facility] Session Start Time : 1125 [facility] Session Stop Time : 1200 Therapeutic Exercise Treatment Minutes: 13 Self-Care/Home Management Treatment Minutes: 12 Total Treatment Time Minutes (timed/untimed): 25 FRANCINE Pal Episode Visit Count: 7 Therapist That Will Oversee The Plan Of Care: You Ray Start of Care Date: 04/03/21 Onset Date: 03/27/21 Patient Identified by Name and Date of : Yes documented in this encounter [facility] 05-21-2021 Miscellaneous Notes Received a call from patients mother stating that they feel his finger is infected again. He got it caught on his sleeve and the bottom suture came out. He is having yellow discharge. Per Dr. Hilario Bactrim 800-160mg BID for 10 days was called into patients pharmacy. An order is attached for signature. Nela Guo [employer] May 21, 2021 3:43 PM documented in this encounter [facility] 05-18-2021 History of Present illness Narrative Episode Visit Count: 6 Therapist That Will Oversee The Plan Of Care: You Ray Start of Care Date: 04/03/21 Onset Date: 03/27/21 Patient Identified by Name and Date of : Yes REHABILITATION AND SPORTS THERAPY OCCUPATIONAL THERAPY PROGRESS REPORT PLAN OF CARE UPDATE: Assessment: Harvey Echevarria demonstrates significant improvement in heavy exertion, physical activities and recreational activities . He has progressed toward goals. Patient continues to present with impairments in overall function and range of motion that interfere with physical activities;recreational activities . Current prognosis is Good due to: current objective clinical presentation;good overall health status;acuteness of condition He will benefit from continued skilled therapy services to meet the updated goals for this plan of care as noted below. Goals for Episode of Care created on 04/03/21 through 07/02/21 Patient will report a good understanding of diagnosis and OT recommendations for progression of program. Achieved 05/18/2021 and ongoing Patient will demonstrate independence with ongoing home recommendations/exercise program throughout therapy plan of care. Achieved 05/18/2021 and ongoing Patient will improve function in Right wrist , hand and finger in order to be able to perform basic self-care tasks, home management tasks and leisure / recreation skills. Not Addressed 05/18/2021 as patient is not yet allowed to use hand per healing protocol. Patient will report a decrease in pain in Right hand and finger to 0/10 with basic self-care tasks, home management tasks and leisure / recreation skills. Achieved 05/18/2021 and ongoing Patient will increase AROM of Right wrist , hand and finger to WFL and opposition to base of small finger and digits to DPC in order to be able to improve function for basic self-care tasks, home management tasks and leisure / recreation skills. Achieved 05/18/2021 and ongoing Patient will independently demonstrate correct application of CUSTOM orthosis and verbalize understanding of proper wear/care. Achieved 05/18/2021 and ongoing Patient will increase Right park activities coordinator strength of right park activities coordinator to 75# so that patient will be able to improve function for basic self-care tasks, home management tasks, leisure / recreation skills and work tasks. Not Addressed 05/18/2021 as patient is not yet allowed to use hand per healing protocol. Patient Goals: Get hand better Planned Interventions, Frequency, and Duration: 1x/week, 12 weeks Total Number of Visits Planned: 12 Planned Treatment Interventions: Custom orthosis fabrication;Therapeutic exercise (62882);Therapeutic activities ([id number]);Self-jail management ([id number]);Orthotics management and training ([id number]);Patient/Family/Car egiver Education PLAN FOR NEXT VISIT: Monitor protection of thumb IP and improve thumb CMC and MP mobility SUBJECTIVE: update splint to tip protector and improve thumb mobility Patient saw Dr. Hilario today and Ordered revised splint to tip protector and begin active range of motion all joints except thumb IP as bone is still healing. Patient also ordered silicone cap for scarring on thumb Functional Limitations: physical activities;recreational activities Pain: Pain Pain Level: 3 Pain Location: Thumb - Right Description: Sore;Stiffness Frequency: With movement Post Treatment Pain Post Treatment Pain Level: Better Post Treatment Pain Location: Thumb - Right Post Treatment Pain Description: Sore Post Treatment Symptoms: feels better with smaller splint PROMIS Scales T-scores: mean of general population = 50. 5 points is clinically meaningfully difference Percentiles provide an indication of how the patient's score ranks in relation to the general population. Higher percentile rankings indicate better function/quality of life. 50th percentile is the average of the general population and indicates half of respondents had a worse score. T-scores: mean of general population = 50. 5 points is clinically meaningfully difference Percentiles provide an indication of how the patient's score ranks in relation to the general population. Higher percentile rankings indicate better function/quality of life. 50th percentile is the average of the general population and indicates half of respondents had a worse score. OBJECTIVE MEASURES WITH LEVEL OF FUNCTION: Sensation - Upper Extremity UE Light Touch Sensation: Impaired Hand Skin / Wound: Wound Description Wound Description: Progressing as expected Edema Location: right thumb Edema Description: Moderate Shoulder AROM: WFL Elbow AROM: WFL Wrist AROM: WFL Right Hand AROM: WFL Thumb AROM: Right Limitation Sensation: Reports tingling or numbness Dexterity/Coordination: Not Tested UE AROM Right Hand AROM: WFL Thumb AROM: Right Limitation Hand AROM R Thumb MP Extension : -30 Degrees R Thumb MP Flexion : 52 Degrees R Thumb Flexion Adduction (cm): 0 cm R Thumb Opposition (Functional): WFL TREATMENT: Therapeutic Exercise: 1: Reviewed AROM to right wrist and hand. Patient performed correctly 2: reviewed thumb CMC and MP AROM with handout issued. Patient perfromed correctly and agreed to follow through at home 3: reviewed thumb opposition exercises and patient performed correctly Skilled Intervention: Patient was educated in proper exercise technique and purpose for exercises. Reviewed and educated patient on additions/changes for home exercise program . Skilled judgment was provided in selection of appropriate interventions. Self-Chcf Management: 1: reviewed pain and edema reduction techniques and patient performed correctly 2: reviewed splint wear and care instructions 3: reviewed scar care and use of silicone to soften scar. Issued silicone cap to wear under splint. 4: Discussed return to light weight ADLs, no pinching use of thumb until more healing is noted at the distal phalanx. Patient agreed 5: Home exercise program as practiced today Skilled Intervention: Skilled judgment in the selection of proper modification for activity of daily living/home management based on clinical presentation, deficits, and needs. Provided written instruction for activities of daily living techniques to facilitate proper performance and compliance. Reviewed patient specific diagnosis in relation to activities of daily living/home management. Activity progression based on professional judgement. Reviewed and educated patient on additions/changes for home program Orthotic/Prosthetic Adjust/Train (Subsequent): OT Orthotic/Prosthetic Adjust/Train (Subsequent): Splint revised per doctor's orders from hand-based to thumb tip protector which leaves CMC and MP free for active range of motion. Patient is still to wear splint at all times to protect healing distal phalanx. Skilled Intervention:Clinical knowledge and skills required for custom orthotic fabrication and wearing schedule Patient/caregiver was educated in correct method for donning/doffing orthosis as well as wear and care of orthosis. Billing [facility] Session Start Time : 1045 [facility] Session Stop Time : 1130 Therapeutic Exercise Treatment Minutes: 20 Self-Care/Home Management Treatment Minutes: 15 Orth/Pros Adjust/Train (subsequent) Treatment Minutes: 10 Total Treatment Time Minutes (timed/untimed): 45 FRANCINE Calderón,CHT documented in this encounter [facility] 05-18-2021 History of Present illness Narrative Images from the original note were not included. Dara Hilario MD Hand & Upper Extremity Surgery [address], [place] [address], [place] [address] [address], [facility] [id number] [place], [address] [address] POST-OP VISIT SERVICE DATE: 05/18/2021 SURGICAL PROCEDURE: 3 weeks 3 days status post- debridement of right thumb infection with hardware removal and distal phalanx amputation SURGERY DATE: 04/24/2021 Harvey Echevarria is a 20 year old male who presents for evaluation following the above procedure. Patient is doing well postoperatively and advancing through postop protocol. Patient denies any fevers or chills. Patient denies any new drainage from the incision. Improving numbness/tingling. Pain is controlled with [id number] pain medication as needed. Patient is working on range of motion with a home exercise program and occupational therapy. 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 PAST SURGICAL HISTORY Procedure Laterality Date PAST SURGICAL HISTORY OF right thumb amputaion No family history on file. Social History Tobacco Use Smoking status: Never Smoker Smokeless tobacco: Former User Types: Chew Substance Use Topics Alcohol use: Not on file Drug use: Not on file MEDICATIONS: No current outpatient medications on file. No current facility-administered medications for this visit. ALLERGIES: ALLERGIES Allergen Reactions Adhesive Tape (Tiffanie* Rash Claritin [Loratadin* Rash PHYSICAL EXAM: VITAL SIGNS: Resp 16 Ht 5' 8 (1.73m) Wt 124 lb (56.2kg) BMI 18.86 kg/(m^2). GENERAL: The patient is well developed and well nourished, awake, alert, and oriented with appropriate mood and affect. Normal gait and station. SKIN: The skin surrounding the incision is non-erythematous. No active drainage. No fluctuance or fluid collection. Incision over the distal thumb stump is healing well. INSPECTION/PALPATION: There is diffuse swelling around the surgical site, within normal post-op limits, and no palpable joint effusion. TENDERNESS: There is tenderness to palpation over the fracture site of the proximal phalanx ROM: There is -30 thumb MP extension, 50 degrees of thumb MP flexion LIGAMENTS: There is no gross ligamentous laxity. 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 NEURO: Sensation is grossly intact to light touch in the median, ulnar, and radial distributions. VASCULAR: Strong radial pulse. Excellent capillary refill to all digits. POST OPERATIVE IMAGING: None obtained Assessment and Plan: (S67.01XD) Crush injury to thumb, right, subsequent encounter (primary encounter diagnosis) (L08.9) Infection of thumb (S62.511D) Open displaced fracture of proximal phalanx of right thumb with routine healing, subsequent encounter Patient will continue local wound care and occupational therapy to help restore function status post amputation of the distal phalanx of the right thumb. We will limit gripping or pinching with the thumb until the proximal phalanx fracture is completely healed. Nerve regenerates at approximately 1 mm/day. Prognosis is effected by patient age, delay in repair, level of the injury, nature of the injury. A positive Tinel's or zingers spontaneously may indicate that the nerve is healing. Persistent worsening pain would indicate a poor outcome. I think patient can expect some improvement in the distal numbness and tingling over time. Patient/family acknowledges understanding of instructions: Yes Patient advised to call with questions or concerns Follow up in 2 weeks. X-Rays Needed Dara Hilario MD documented in this encounter [facility] 05-08-2021 History of Present illness Narrative Episode Visit Count: 5 Therapist That Will Oversee The Plan Of Care: You Ray Start of Care Date: 04/03/21 Onset Date: 03/27/21 Patient Identified by Name and Date of : Yes REHABILITATION AND SPORTS THERAPY OCCUPATIONAL THERAPY TREATMENT NOTE ASSESSMENT: Harvey Echevarria tolerated the session with decreased activity tolerance due to limited ROM and pain in R thumb. He demonstrated difficulty with function. The patient will continue to benefit from ongoing skilled occupational therapy to progress toward set goals. Current Frequency: 1x/week Duration: 12 weeks Total Number of Visits Planned: 12 Planned Treatment Interventions: Custom orthosis fabrication;Therapeutic exercise (61626);Therapeutic activities (02717);Self-jail management ([id number]) PLAN FOR NEXT VISIT: Reviewed dressing changes and range of motion after MD appointment and progress as tolerated modify splint as needed SUBJECTIVE: Splint ROM Im doing ok Pain: Pain Pain Level: 3 Pain Location: Thumb - Right Description: Aching Frequency: Continuous Post Treatment Pain Post Treatment Pain Level: No Change OBJECTIVE MEASURES WITH LEVEL OF FUNCTION: Hand Skin / Wound: Wound Description (no drainage, xeroform and gauze on at beginning of session) Wound Description: (open with stiches) Edema Location: (R thumb) Edema Description: Severe Right Hand PROM: All Digits Hand AROM R Thumb MP Extension : -5 Degrees R Thumb MP Flexion : 30 Degrees R Thumb Flexion Adduction (cm): 4 cm UE PROM Right Hand PROM: All Digits TREATMENT: Self-Chcf Management: 1: Patient and mother instructed in postop dressing change dressing change completed today with Xeroform dressing 2: splint fitting well and not needing adjustment on this date 3: Reviewed with patient and mother postop edema prevention techniques along with shoulder pumps elbow range of motion and wrist range of motion 4: Patient and mother instructed in daily dressing changes will follow up as indicated 5: Discussion with patient and mother at length rehab process and dealing with postop amputation of thumb and treatment plan from this day forward Skilled Intervention: Skilled judgment in the selection of proper modification for activity of daily living/home management based on clinical presentation, deficits, and needs. Physical assistance was provided during education for modifications and patient safety. [facility] Session Start Time : 954 [facility] Session Stop Time : 1014 Therapeutic Exercise Treatment Minutes: 10 Self-Care/Home Management Treatment Minutes: 10 NAUN Nieves Open in error documented in this encounter [facility] 05-04-2021 History of Present illness Narrative Images from the original note were not included. Dara Hilario MD Hand & Upper Extremity Surgery [address], [place] [address] [address], [place] [address] [address] [facility] [address], [facility] [phone] [place], [facility] [address], [place] [address] POST-OP VISIT SERVICE DATE: 05/04/2021 SURGICAL PROCEDURE: 10 days status post-debridement of right thumb infection with hardware removal and distal phalanx amputation SURGERY DATE: 04/24/2021 Harvey Echevarria is a 20 year old male who presents for evaluation following the above procedure. Patient is doing well postoperatively and advancing through postop protocol. Patient denies any fevers or chills. Patient denies any new drainage from the incision. He does endorse some numbness/tingling at the radial aspect of the stump. Pain is controlled with [id number] pain medication as needed. Patient is working on range of motion with a home exercise program and occupational therapy. Work status: Patient would like to return to work light duty without utilizing the right upper extremity He does have some days where he is emotionally upset by the loss of the distal phalanx of the thumb but also overall has a good attitude about potential outcomes. History reviewed. No pertinent past medical history. PAST SURGICAL HISTORY Procedure Laterality Date PAST SURGICAL HISTORY OF right thumb amputaion No family history on file. Social History Tobacco Use Smoking status: Never Smoker Smokeless tobacco: Former User Types: Chew Substance Use Topics Alcohol use: Not on file Drug use: Not on file MEDICATIONS: Current Outpatient Medications Medication Sig sulfamethoxazole-trimethoprim (BACTRIM DS) 800-160 mg per tablet Take 1 tablet by mouth twice daily for 10 days. No current facility-administered medications for this visit. ALLERGIES: ALLERGIES Allergen Reactions Adhesive Tape (Tiffanie* Rash Claritin [Loratadin* Rash PHYSICAL EXAM: VITAL SIGNS: Resp 16 Ht 5' 8 (1.73m) Wt 124 lb (56.2kg) BMI 18.86 kg/(m^2). GENERAL: The patient is well developed and well nourished, awake, alert, and oriented with appropriate mood and affect. Normal gait and station. SKIN: The skin surrounding the incision is non-erythematous. No active drainage. No fluctuance or fluid collection. The incision line is clean with a 2 mm scab at the center. INSPECTION/PALPATION: There is diffuse swelling around the surgical site, within normal post-op limits, and no palpable joint effusion. TENDERNESS: There is tenderness to palpation over the distal tip of the thumb stump ROM: There is 25 degrees of thumb MP flexion LIGAMENTS: There is no gross ligamentous laxity. MUSCLE: Chalk Extruding Machine Operator strength is not tested today NEURO: Sensation is grossly intact to light touch in the median, ulnar, and radial distributions. VASCULAR: Strong radial pulse. Excellent capillary refill to all digits. POST OPERATIVE IMAGIN views (PA, oblique, lateral) of the right thumb were obtained, reviewed and interpreted and demonstrate continued fracture lines with some interval callus through the comminuted distal proximal phalanx of the thumb. Overall near anatomic alignment. Assessment and Plan: (S67.01XD) Crush injury to thumb, right, subsequent encounter (primary encounter diagnosis) (L08.9) Infection of thumb (S62.358D) Open displaced fracture of proximal phalanx of right thumb with routine healing, subsequent encounter I reviewed the X-rays with the patient. In regards to wound care, I recommend no ointments, alcohol or peroxide. I recommend washing with soap and water. I reviewed with the patient the signs and symptoms of progressing infection including advancing erythema, increasing pain, lymphadenopathy, inability to move the joint, proximal streaking, fevers, chills. Patient will observe for these and call the office or report to the ED if needed. Patient can return to work light duty without use of the right upper extremity. I recommend continue to work with occupational therapy in order to maximize range of motion with the remaining thumb. I discussed with him that if the length of the thumb leads to poor function there are options for revision that would allow him increased length of the thumb. Patient verbalized understanding and agreement with plan. Patient/family acknowledges understanding of instructions: Yes Patient advised to call with questions or concerns Follow up in 2 - 4 weeks. X-Rays Needed Dara Hilario MD documented in this encounter [facility] 05-01-2021 History of Present illness Narrative Episode Visit Count: 4 Therapist That Will Oversee The Plan Of Care: You Ray Start of Care Date: 04/03/21 Onset Date: 03/27/21 Patient Identified by Name and Date of : Yes REHABILITATION AND SPORTS THERAPY OCCUPATIONAL THERAPY RE-EVALUATION PLAN OF CARE UPDATE: Assessment: Harvey Echevarria demonstrates patient seen status post partial amputation of right thumb 04/24/2021. He has continue with previous goals due to partial amputation progress as able. Patient continues to present with impairments in ADL's, overall function, range of motion and strength that interfere with . Current prognosis is Good due to: current objective clinical presentation . He will benefit from continued skilled therapy services to meet the updated goals for this plan of care as noted below. Goals for Episode of Care created on 04/03/21 through 07/02/21 UPDATED 04/03/21 S/P PARTIAL AMPUTATION Patient will report a good understanding of diagnosis and OT recommendations for progression of program. MET 05/01/21 Patient will demonstrate independence with ongoing home recommendations/exercise program throughout therapy plan of care. Patient will improve function in Right wrist , hand and finger in order to be able to perform basic self-care tasks, home management tasks and leisure / recreation skills. Patient will report a decrease in pain in Right hand and finger to 0/10 with basic self-care tasks, home management tasks and leisure / recreation skills. Patient will increase AROM of Right wrist , hand and finger to WFL and opposition to base of small finger and digits to DPC in order to be able to improve function for basic self-care tasks, home management tasks and leisure / recreation skills. Patient will independently demonstrate correct application of CUSTOM orthosis and verbalize understanding of proper wear/care. Patient will increase Right park activities coordinator strength of right park activities coordinator to 75# so that patient will be able to improve function for basic self-care tasks, home management tasks, leisure / recreation skills and work tasks. Patient will report a good understanding of edema control, scar / wound management throughout therapy plan of care to promote non-adherent / non-tender soft tissue. Patient Goals: Get hand better Planned Interventions, Frequency, and Duration: 1x/week, 12 weeks Total Number of Visits Planned: 12 Planned Treatment Interventions: Custom orthosis fabrication;Therapeutic exercise (25810);Therapeutic activities (00173);Self-jail management ([id number]) PLAN FOR NEXT VISIT: Reviewed dressing changes and range of motion after MD appointment and progress as tolerated modify splint as needed SUBJECTIVE: Splint ROM My thumb is really sore today Pain: Pain Pain Level: 4 Pain Location: Thumb - Right Description: Aching Frequency: Continuous Post Treatment Pain Post Treatment Pain Level: No Change PROMIS Scales T-scores: mean of general population = 50. 5 points is clinically meaningfully difference Percentiles provide an indication of how the patient's score ranks in relation to the general population. Higher percentile rankings indicate better function/quality of life. 50th percentile is the average of the general population and indicates half of respondents had a worse score. T-scores: mean of general population = 50. 5 points is clinically meaningfully difference Percentiles provide an indication of how the patient's score ranks in relation to the general population. Higher percentile rankings indicate better function/quality of life. 50th percentile is the average of the general population and indicates half of respondents had a worse score. OBJECTIVE MEASURES WITH LEVEL OF FUNCTION: Hand Skin / Wound: Wound Description (minor drainage) Wound Description: (Mild drainage sutures in place and 12 x 6 mm scab) Edema Location: right thumb Edema Description: Severe Edema Measurements: (unable due to open wound) Shoulder AROM: WFL Elbow AROM: WFL Wrist AROM: Right Limitation Right Hand AROM: All Digits;WFL Thumb AROM: Right Limitation Sensation: (Hyper sensative about wound area due to recent surgery) Hand Strength R Chalk Extruding Machine Operator Position 2 (lbs): (N/A) L Chalk Extruding Machine Operator Position 2 (lbs): 105 lbs UE AROM R Wrist Extension: (WFL) Right Hand AROM: All Digits;WFL Thumb AROM: Right Limitation Hand AROM R Thumb MP Extension : 0 Degrees Current Activities Of Daily Living Current Activities Of Daily Living: Feeding;Grooming;Bathing Upper Body;Bathing Lower Body;Dressing Upper Body;Dressing Lower Body;Toileting Feeding: Modified Independent Grooming: Modified Independent Bathing Upper Body: Modified Independent Bathing Lower Body: Modified Independent Dressing Upper Body: Modified Independent Dressing Lower Body: Modified Independent Toileting: Modified Independent Instrumental Activities of Daily Living Difficulty noted with: Cleaning;Laundry;Cooking Cooking: Modified Independent Cleaning: Modified Independent Laundry: Modified Independent TREATMENT: Re-evaluation: Performed due to the following change of patient status: Status post partial thumb amputation 04/24/2021 Therapeutic Exercise: Skilled Intervention: Patient was educated in proper exercise technique and purpose for exercises. Skilled judgment was provided in selection of appropriate interventions. Provided written instruction for home exercise program to facilitate proper performance and compliance. Custom orthosis: L 3913 HFO w/out joints (short opponens, all CMC designs, C-bar, hand richey, hand gutter, hand trigger, anti-claw) Custom orthosis to provide immobilization, protection and support of Right thumb to promote healing. Patient was instructed in care of orthosis and wearing schedule mounter brass wind instruments off for dressing changes only. Skilled Intervention: Clinical knowledge and skills required for custom orthotic fabrication and wearing schedule Required supervision for donning/doffing orthosis Billing [facility] Session Start Time : 1100 [facility] Session Stop Time : 1200 * Re-Evaluation : 1 Unit Self-Care/Home Management Treatment Minutes: 30 * L 3913 HFO w/out joints (short opponens, all CMC designs, C-bar, hand richey, hand gutter, hand trigger, anti-claw) Quantity: 1 Fabrication time for custom splint (minutes): 15 Total Treatment Time Minutes (timed and untimed codes) : 60 ANDREY Pal/Shereen documented in this encounter [facility] 04-27-2021 Miscellaneous Notes Refill request received from this patients pharmacy. Nela Guo [place] [facility] April 27, 2021 7:24 AM documented in this encounter [facility] 04-17-2021 History of Present illness Narrative Episode Visit Count: 3 Therapist That Will Oversee The Plan Of Care: You Ray Start of Care Date: 04/03/21 Onset Date: 03/27/21 Patient Identified by Name and Date of : Yes REHABILITATION AND SPORTS THERAPY OCCUPATIONAL THERAPY TREATMENT NOTE ASSESSMENT: Harvey Echevarria tolerated the session with no issues. He demonstrated difficulty with pain and range of motion of thumb. The patient will continue to benefit from ongoing skilled occupational therapy to progress toward set goals. Current Frequency: 1x/week Duration: 12 weeks Total Number of Visits Planned: 12 Planned Treatment Interventions: Custom orthosis fabrication;Therapeutic exercise (11869);Therapeutic activities (37948);Self-jail management (70943) PLAN FOR NEXT VISIT: Reviewed dressing changes and range of motion after MD appointment and progress as tolerated modify splint as needed SUBJECTIVE: Splint ROM My thumb is doing okay was draining some I have been bending it as I am able Patient and mother advised of wound status is clear drainage is okay will follow-up as indicated and inform MD of any changes in wound status Pain: Pain Pain Level: 1 Pain Location: Thumb - Right Description: Aching Frequency: Continuous Post Treatment Pain Post Treatment Pain Level: No Change OBJECTIVE MEASURES WITH LEVEL OF FUNCTION: Hand Skin / Wound: Wound Description (Pins, minor drainage) Wound Description: (Review of wound status this date wound is healing with minimal clear drainage 4 mm open slightly draining area around dorsal nailbed area) Edema Location: right thumb Edema Description: Severe Edema Measurements: (unable due to pen wound) Shoulder AROM: WFL Elbow AROM: WFL Wrist AROM: Right Limitation Right Hand AROM: All Digits;WFL Thumb AROM: Right Limitation Sensation: Reports tingling or numbness Hand Strength R Chalk Extruding Machine Operator Position 2 (lbs): (N/A) L Chalk Extruding Machine Operator Position 2 (lbs): 105 lbs UE AROM R Wrist Extension: 35 Degrees (Digits WFL) R Wrist Flexion: 45 Degrees Right Hand AROM: All Digits;WFL Thumb AROM: Right Limitation Hand AROM R Thumb MP Extension : 0 Degrees R Thumb MP Flexion : 10 Degrees R Thumb IP Extension : (N/A) R Thumb IP Flexion : (N/A) Current Activities Of Daily Living Current Activities Of Daily Living: Feeding;Grooming;Bathing Upper Body;Bathing Lower Body;Dressing Upper Body;Dressing Lower Body;Toileting Feeding: Modified Independent Grooming: Modified Independent Bathing Upper Body: Modified Independent Bathing Lower Body: Modified Independent Dressing Upper Body: Modified Independent Dressing Lower Body: Modified Independent Toileting: Modified Independent Instrumental Activities of Daily Living Difficulty noted with: Cleaning;Laundry;Cooking Cooking: Modified Independent Cleaning: Modified Independent Laundry: Modified Independent TREATMENT: Therapeutic Exercise: 1: Reviewed finger ROM with min cues for follow through and technique 2: Min cues for MP thumb motion Skilled Intervention: Patient was educated in proper exercise technique and purpose for exercises. Skilled judgment was provided in selection of appropriate interventions. Self-Chcf Management: 1: Reviewed wear and care of splint 2: Reviewed modified ADL tasks 3: Min cues with gentle MP motion and no IP motion 4: Dressing change this date with noted above wound status patient and mother instructed in dressing changes using small piece of Xeroform with daily dressing change to monitor as needed and to email picture to therapist if status of wound changes 5: Reviewed with patient and mother future scar and healing management techniques 6: Mod cues for patient and mother instructed in gentle wrapping of wound to begin with wound management and scar management Skilled Intervention: Skilled judgment in the selection of proper modification for activity of daily living/home management based on clinical presentation, deficits, and needs. Activity progression based on professional judgement. [facility] Session Start Time : 1014 [facility] Session Stop Time : 1045 Therapeutic Exercise Treatment Minutes: 15 Self-Care/Home Management Treatment Minutes: 30 Total Treatment Time Minutes (timed and untimed codes) : 45 FRANCINE Pal documented in this encounter [facility] 04-10-2021 History of Present illness Narrative Episode Visit Count: 2 Therapist That Will Oversee The Plan Of Care: You Ray Start of Care Date: 04/03/21 Onset Date: 03/27/21 Patient Identified by Name and Date of : Yes REHABILITATION AND SPORTS THERAPY OCCUPATIONAL THERAPY TREATMENT NOTE ASSESSMENT: Harvey Echevarria tolerated the session with no issues. He demonstrated difficulty with pain, healing and use of right hand. The patient will continue to benefit from ongoing skilled occupational therapy to progress toward set goals. Current Frequency: 1x/week Duration: 12 weeks Total Number of Visits Planned: 12 Planned Treatment Interventions: Custom orthosis fabrication;Therapeutic exercise (81669);Therapeutic activities (63228);Self-jail management ([id number]) PLAN FOR NEXT VISIT: Update dressing changes and program as indicated after MD appt SUBJECTIVE: Splint ROM It is doing ok Pain: Pain Pain Level: 1 Pain Location: Thumb - Right Description: Aching Frequency: Continuous Post Treatment Pain Post Treatment Pain Level: No Change 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 Position 2 (lbs): (N/A) L Chalk Extruding Machine Operator Position 2 (lbs): 105 lbs UE AROM R Wrist Extension: 35 Degrees (Digits WFL) R Wrist Flexion: 45 Degrees Right Hand AROM: All Digits;WFL Thumb AROM: Right Limitation Hand AROM R Thumb MP Extension : 0 Degrees R Thumb MP Flexion : 10 Degrees R Thumb IP Extension : (N/A) R Thumb IP Flexion : (N/A) Current Activities Of Daily Living Current Activities Of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
--- NOTE | 2024-12-04 19:10 | EDS_ITS ---
HPI History of Present Illness Chief Complaint: Upper Extremity Injury Detail of Chief Complaint: Right hand pain and swelling due to blunt trauma Occured/Mechanism Mechanism/Context: Yes blunt trauma Onset/Context/Timing Onset: Yesterday Context: Sudden Onset Timing: Continuous Quality of Pain: Dull Location: Right hand over the 4th and 5th MCP joint Current Severity: Mild Maximum Severity: Moderate Worsened by: Use of hand Relieved by: Better with rest Associated Symptoms Associated Symptoms: Negative for Parasthesia, Weakness or Loss of Funtion Narrative Narrative: Patient is a 24-year-old male. [id number]. He had a immobile object yesterday. He presents because of increased pain and swelling to his right hand. He he denies paresthesia, anesthesia or motor weakness. Prior similar symptoms: No Recent Illness/Hospitalization: No PFSH [facility] Medical History History of skull fracture Home Medications ?Medication ?Instructions ?Recorded ?Last Taken ?Type cefadroxil 500 mg capsule 500 mg PO Q12H #20 caps 03/11 05/29 Unknown Rx Allergy/AdvReac Type Severity Reaction Status Date / Time adhesive tape Allergy Rash Verified 12/04/24 17:54 Social History Smoking Status: Current every day smoker tobacco type: smokeless tobacco ROS ROS ED Constitutional Constitutional ED: Denies chills or fever(s) Eyes Eyes: Denies blurry vision Musculoskeletal Musculoskeletal: Reports other Details: Right hand pain ; Denies back pain, myalgias or neck pain Integumentary Reports other Details: Discoloration and soft tissue swelling of right hand Neurologic Neurologic: Denies paresthesias or weakness Hematologic/Lymphatic Hematologic/Lymphatic: Denies easy bleeding or easy bruising EXAM Physical Exam Const Vital Signs: 12/04/24 17:54 Temperature 97.6 F L Temperature Source Temporal Pulse Rate 64 Respiratory Rate 20 H Blood Pressure 137/82 H Blood Pressure Mean 100 Pulse Ox 99 Oxygen Delivery Method Room Air Positive well nourished and well developed General Appearance ED: well developed and NAD HEENT Reports moist mucous membranes normocephalic and atraumatic Eyes PERRL and EOMs intact bilaterally Resp normal respiratory effort Cardio regular rate and regular rhythm Extremity full ROM; Negative for normal to inspection Extremity Narrative: There is swelling of the right hand. There is pain ovation over the 4th and 5th metacarpal and specifically over the fifth MCP joint. There is no rotational malalignment. Median, radial and ulnar function intact. Capillary fill is normal. Sensation is normal. Neuro oriented x3, CN's II-XII intact bilaterally, moves all extremities, no focal motor deficits and no sensory deficits noted Sensorium / Orientation: alert Psych mental status grossly normal Skin Skin Narrative: Bruising right hand MDM MDM MDM Narrative Medical decision making narrative: X-ray was ordered to assess for contusion versus fracture. Radiography Chest X-Ray - ED: Read by ED Physician (Three-view x-ray of the hand was independent reviewed interpreted by me as negative for fracture, subluxation or dislocation. There is no foreign body. There is some mild soft tissue swelling noted.) Diagnostic Testing: Clinical Impression(s) from Imaging Studies Hand X-Ray 12/04/24 18:20 IMPRESSION: No acute fracture or dislocation. Reading Location: [facility] Treatment and Re-Evaluation Narrative: Patient was informed that he does not have a fracture. Treatment is anti- inflammatory and ice. Discharge Plan Triage Chief Complaint: Upper Extremity Injury ED Provider: Magdiel Sahu Dx/Rx/DC Orders Clinical Impression: Contusion of multiple sites of right hand and fingers, Elevated blood pressure reading without diagnosis of hypertension Instructions: ED Hand Contusion Prescriptions: No Action cefadroxil 500 mg capsule 500 mg PO Q12H Qty: 20 0RF Primary Care Provider: Roma Gonzalez NP Referrals: Roma Gonzalez NP, [employer] [Primary Care Provider, Family Practice] - 1 Week if not improving Activity Restrictions/Additional Instructions: 1. Apply ice 6-8 times a day to your right hand. 2. Take either 3 ibuprofen tablets every 8 hours or 2 Aleve tablets every 12 hours for the next 3 to 5 days for pain. Print Language: Belarusian Disposition Disposition: Home, Self Care
[2024-12-04 19:16] VITALS: BP 104/78; PULSE 63; RESP 16; TEMP 36.4; O2SAT 98
== END 2024-12-04 19:19 | disposition home or self-care (01) ==
PROVIDERS: Emergency Provider Emergency Medicine; PCP Nurse Practitioner Family; Visit Provider Emergency Medicine
DX: S60.221A Contusion of right hand, initial encounter (principal); R03.0 Elevated blood-pressure reading, without diagnosis of hypertension; F17.220 Nicotine dependence, chewing tobacco, uncomplicated; X58.XXXA Exposure to other specified factors, initial encounter
CPT/HCPCS: 73130; 99282